=== PATIENT | female | born 1990 | race Caucasian/White ===

== ENCOUNTER 2016-08-10 14:56 | Emergency (ER) | payer OTHER ==
[2016-08-10 15:08] VITALS: BP 134/75; PULSE 79; TEMP 98.2; BMI 43.2
[2016-08-10] MEDS ORDERED: KETOROLAC TROMETHAMINE 60 MG/2 ML VIAL IM ONE (16:17)
[2016-08-10] MEDS ORDERED: KETOROLAC TROMETHAMINE 30 MG/1 ML VIAL ONE (16:18)
[2016-08-10] MEDS ORDERED: AMOXICILLIN 500 MG CAPSULE (FP) PO ONE (16:21)
[2016-08-10] MEDS ORDERED: AMOXICILLIN 250 MG CAPSULE ONE (16:28)
--- NOTE | 2016-08-10 16:31 | PDOC ---
History of Present Illness - General Chief Complaint: Ear Problem Stated Complaint: EAR PAIN, HEADACHES Time Seen by Provider: 08/10/16 15:34 History Source: Patient Exam Limitations: No Limitations Past History - Travel Traveled outside of the country in the last 30 days: No Close contact w/someone who was outside of country & ill: No - Past Medical History Allergies/Adverse Reactions: Allergies Allergy/AdvReac Type Severity Reaction Status Date / Time wheat Allergy Unknown Verified 08/10/16 15:05 egg whites Allergy Unknown Uncoded 08/10/16 15:05 peanuts Allergy Unknown Uncoded 08/10/16 15:05 Home Medications: Ambulatory Orders Amoxicillin - [Amoxicillin 500mg Capsule -] 500 mg PO TID #21 capsule 08/10/16 Cyclobenzaprine HCl [Flexeril 10 mg] 10 mg PO BID PRN #14 tablet 08/10/16 Naproxen [Naprosyn -] 500 mg PO BID #14 tablet 08/10/16 Asthma: No Cancer: No Cardiac Disorders: No Diabetes: No HTN: No Seizures: No Thyroid Disease: No - Psycho/Social/Smoking Cessation Hx Anxiety: No Suicidal Ideation: No Smoking Status: No Smoking History: Current every day smoker Have you smoked in the past 12 months: Yes Number of Cigarettes Smoked Daily: 5 If you are a former smoker, when did you quit?: 03/04 Information on smoking cessation initiated: No Hx Alcohol Use: No Drug/Substance Use Hx: No Substance Use Type: None Hx Substance Use Treatment: No Review of Systems - Review of Systems Able to Perform ROS?: Yes Is the patient limited Croatian proficient: Yes Constitutional: Yes: Symptoms Reported, See HPI, Chills, Fever, Malaise HEENTM: Yes: Symptoms Reported, See HPI, Mouth Pain (with lower right molar ) Respiratory: Yes: See HPI Integumentary: Yes: Symptoms Reported *Physical Exam - Vital Signs Last Vital Signs Temp Pulse Resp BP Pulse Ox 98.2 F 79 18 134/75 100 08/10/16 15:05 08/10/16 15:05 08/10/16 15:05 08/10/16 15:05 08/10/16 15:05 - Physical Exam General Appearance: Yes: Nourished, Appropriately Dressed, Apparent Distress, Mild Distress, Moderate Distress HEENT: positive: MYLES, TMs Normal (congested but landmarks easily visualized), Pharynx Normal, Rhinorrhea, Other (no facial tenderness/ or swelling, ). negative: Normal ENT Inspection, Sinus Tenderness Neck: positive: Tender, Supple, Other (reproduced tenderness along the sternocleidomastoid muscles, ) Respiratory/Chest: positive: Lungs Clear, Normal Breath Sounds Cardiovascular: positive: Regular Rate Extremity: positive: Normal Capillary Refill, Normal Range of Motion Integumentary: positive: Normal Color, Dry, Warm Neurologic: positive: senior scheduler II-XII NML intact, Fully Oriented, Alert, Normal Mood/ Affect, Normal Response Medical Decision Making - Medical Decision Making 08/10/16 16:31 Tension headache, will treat with NSAIDs and cyclobenzaprine, also dental pain which will be covered the NSAIDs, and also initiate antibiotics as patient will need dental procedure this week for extraction *DC/Admit/Observation/Transfer Diagnosis at time of Disposition: Tension headache, Pain, dental - Discharge Dispostion Disposition: HOME Condition at time of disposition: Stable Admit: No - Patient Instructions Printed Discharge Instructions: DI for Hormonal and Tension Headaches, DI for Dental Pain Additional Instructions: Rest, no heavy lifting or exercise until pain is resolved Hot soaks to neck and low back as often as possible/hot showers or Jacuzzis No massage or therapy until spasm is gone Continue ibuprofen 2-200 mg tablets every 6 hours for the next 3 days then as needed for pain and swelling Cyclobenzaprine 1-10mg every 8 hours as needed for spasm If not significant improvement within 24 hours with medication and rest regime, followup with private physician for change in medications and /or therapy. Rest, drink lots of fluids: Teas, water, soups Saltwater gargles/ keep mouth clean and rinse after each meal May use wet teabag for pain relief to area Avoid hard chewing foods, stick to ice cream, Jell-O, yogurt etc. Tylenol or Motrin for fever and pain Complete all medication as prescribed Seek dental appointment as soon as possible for evaluation of dental injury/pain Followup with private physician in one to 2 days as needed Return to emergency department for worsened symptoms, fevers, swelling to face or worsened pain
== END 2016-08-10 16:40 | disposition home or self-care (01) ==
LOC: JERFT 14:56
PROC: 3E0233Z Introduction of Anti-inflammatory into Muscle, Percutaneous Approach (ICD-10-PCS; principal; 2016-08-10)
DX: G44.209 Tension-type headache, unspecified, not intractable (principal); K08.89 Other specified disorders of teeth and supporting structures
CPT/HCPCS: 96372; 99281-25

== ENCOUNTER 2017-07-21 17:18 | Emergency (ER) | payer OTHER ==
--- NOTE | 2017-07-21 17:22 | PDOC ---
Rapid Medical Evaluation Time Seen by Provider: 07/21/17 17:21 Medical Evaluation: Allergies Allergy/AdvReac Type Severity Reaction Status Date / Time wheat Allergy Unknown Verified 07/21/17 17:20 egg whites Allergy Unknown Uncoded 07/21/17 17:20 peanuts Allergy Unknown Uncoded 07/21/17 17:20 07/21/17 17:22 27 year old female with lower abdominal cramping since yesterday, 5-6 episodes of diarrhea. +Dysuria. No vaginal discharge. No fevers/chills. LMP "last month at the end of the month." Has some spotting. Also complaining of left calf pain. V/s notable for HR 102. No focal abdominal tenderness. Plan: -Labs including CBC, CMP, Mg -UA/culture, urine preg -To Main ED for further evaluation
[2017-07-21 17:28] VITALS: BMI 44.6
[2017-07-21] MEDS ORDERED: SODIUM CHLORIDE 1,000 ML IV STA (17:42)
--- NOTE | 2017-07-21 17:49 | PDOC ---
History of Present Illness - General Chief Complaint: Pain, Acute Stated Complaint: ABD PAIN Time Seen by Provider: 07/21/17 17:21 - History of Present Illness Initial Comments: 07/21/17 18:03 The patient is a 27 year old female with no significant PMH who presents for evaluation of abdominal pain. The patient reports a 1 day history of crampy lower abdominal pain with associated 5-6 episodes of diarrhea prompting the patient's presentation to the ED for evaluation. The patient denies any recent antibiotic use. The patient otherwise denies fevers, chills, SOB, chest pain, nausea, vomiting, or changes with urination. She reports her LMP was 1 month ago and she has started spotting and reports that she should be starting her MP this week. Past History - Past Medical History Allergies/Adverse Reactions: Allergies Allergy/AdvReac Type Severity Reaction Status Date / Time wheat Allergy Unknown Verified 07/21/17 17:20 egg whites Allergy Unknown Uncoded 07/21/17 17:20 peanuts Allergy Unknown Uncoded 07/21/17 17:20 Home Medications: Ambulatory Orders Amoxicillin - [Amoxicillin 500mg Capsule -] 500 mg PO TID #21 capsule 08/10/16 Cyclobenzaprine HCl [Flexeril 10 mg] 10 mg PO BID PRN #14 tablet 08/10/16 Naproxen [Naprosyn -] 500 mg PO BID #14 tablet 08/10/16 Cephalexin Monohydrate [Keflex -] 500 mg PO BID #14 capsule 07/21/17 Asthma: No Cancer: No Cardiac Disorders: No COPD: Yes Diabetes: No HTN: No Seizures: No Thyroid Disease: No - Suicide/Smoking/Psychosocial Hx Smoking Status: No Smoking History: Current every day smoker Have you smoked in the past 12 months: Yes Number of Cigarettes Smoked Daily: 5 If you are a former smoker, when did you quit?: 03/04 Information on smoking cessation initiated: No Hx Alcohol Use: No Drug/Substance Use Hx: No Substance Use Type: None Hx Substance Use Treatment: No Review of Systems - Review of Systems Comments:: 07/21/17 18:08 Constitutional: No fevers, chills, fatigue, malaise HEENT: No Rhinorrhea, nasal congestion, visual changes Cardiovascular: No chest pain, syncope, palpitations, lightheadedness Respiratory: No Cough, SOB, Hemoptysis, Gastrointestinal: Abdominal Cramping, Diarrhea. No Nausea, Vomiting, Constipation, Melena Genitourinary: No Dysuria, Frequency, Urgency, Hesitancy, Hematuria, Flank pain Musculoskeletal: No Myalgia, arthralgia Skin: No rashes, itching, bruising, pallor Neurologic: No Headache, Dizziness, Numbness, Weakness, or Tingling Psychiatric: No Hallucinations. No SI or HI *Physical Exam - Vital Signs Last Vital Signs Temp Pulse Resp BP Pulse Ox 98.3 F 102 H 20 124/73 100 07/21/17 17:20 07/21/17 17:20 07/21/17 17:20 07/21/17 17:20 07/21/17 17:20 - Physical Exam Comments: 07/21/17 18:09 General Appearance: Nourished. No Apparent Distress HEENT: EOMI, MYLES. No Pharyngeal Erythema, Tonsillar Exudate, Tonsillar Erythema Neck: No Cervical Lymphadenopathy Respiratory/Chest: Lungs Clear, Normal Breath Sounds. No Crackles, Rales, Rhonchi, Wheezing Cardiovascular: Regular Rhythm, Regular Rate. No Murmur, Gallops, Rubs Gastrointestinal/Abdominal: Normal Bowel Sounds, Soft. Mild tenderness to deep palpation in the suprapubic region. No Guarding, Rebound, Musculoskeletal: No CVA Tenderness Extremity: Normal Capillary Refill Integumentary: Normal Color, Dry, Warm Neurologic: Fully Oriented, Alert, Normal Mood/Affect, Normal Response, ED Treatment Course - LABORATORY CBC & Chemistry Diagram: 07/21/17 16:20 07/21/17 16:20 Medical Decision Making - Medical Decision Making 07/21/17 18:11 The patient is a 27 year old female with no significant PMH who presents for evaluation of abdominal pain. Differential includes but is not limit to: Gastroenteritits, UTI, Menstrual cramping, infectious, metabolic derangement. Given the patient's history we will obtain a cbc, cmp, ua, urine preg to evaluate further for possible etiologies. We will treat in the meantime with iv fluids and continue to monitor and reassess. 07/21/17 21:59 CBC, cmp, serum preg are unremarkable. Given the patient's history and UA, it is possible the patient's symptoms are due to a UTI. The patient's abdominal exam remains normal and the patient reports improvement in her symptoms. The patient's vital signs have improved and the patient has tolerated PO intake. We are comfortable discharging the patient home at this time with primary care provider follow up on keflex. We discussed the results, plan and strict return precautions with the patient who voiced understanding and is agreeable with the plan. *DC/Admit/Observation/Transfer Diagnosis at time of Disposition: Urinary tract infection Qualifiers: Urinary tract infection type: site unspecified Hematuria presence: without hematuria Qualified Code(s): N39.0 - Urinary tract infection, site not specified - Discharge Dispostion Disposition: HOME Condition at time of disposition: Good Admit: No - Prescriptions Prescriptions: Cephalexin Monohydrate [Keflex -] 500 mg PO BID #14 capsule - Referrals Referrals: Layton Pantoja MD [Staff Physician] - - Patient Instructions Printed Discharge Instructions: DI for Urinary Tract Infection (UTI) Additional Instructions: Please return to the ER if you experience concerning or worsening symptoms including worsening abdominal pain, fevers, or vomiting. Your lab results were normal here in the ER. Your urine showed some signs of an infection and we have sent a prescription for antibiotics to your pharmacy that you should use as directed. It is extremely important that you call to schedule a follow up appointment with your primary care provider within 2-3 days to discuss your ER visit and further management of your symptoms. - Post Discharge Activity
[2017-07-21] MEDS ORDERED: IBUPROFEN 600 MG TABLET (FP) PO ONE ×2 (18:02→18:17)
[2017-07-21 18:32] LABS: BASO % 0.9 % (0-2.0); EOS % 1.3 % (0-4.5); HEMATOCRIT 41.2 % (32.4-45.2); HEMOGLOBIN 14.1 GM/dL (10.7-15.3); LYMPH % 25.5 % (8-40); MCH 29.5 pg (25.7-33.7); MCHC 34.3 g/dl (32.0-36.0); MEAN CELL VOLUME 86.2 fl (80-96); MEAN PLT VOLUME 8.8 fl (7.5-11.1); MONO % 4.1 % (3.8-10.2); NEUT % 68.2 % (42.8-82.8); PLATELET COUNT 208 K/MM3 (134-434); RBC 4.78 M/mm3 (3.60-5.2)
[2017-07-21 19:09] LABS: ALBUMIN 3.9 g/dl (3.4-5.0); ANION GAP 3 (8-16); BILIRUBIN,TOTAL 0.5 mg/dL (0.2-1.0); BLOOD UREA NITROGEN 11 mg/dL (7-18); CALCIUM 8.6 mg/dL (8.5-10.1); CHLORIDE 110 mmol/L (98-107); CO2 28 mmol/L (21-32); CREATININE 0.8 mg/dL (0.55-1.02); GLUCOSE,RANDOM 114 mg/dL (74-106); LIPASE 131 U/L (73-393); MAGNESIUM 1.9 mg/dL (1.8-2.4); POTASSIUM 3.8 mmol/L (3.5-5.1); SGOT/AST 22 U/L (15-37); SGPT/ALT 41 U/L (12-78); SODIUM 141 mmol/L (136-145)
--- NOTE | 2017-07-21 19:09 | PDOC ---
Attending Attestation - HPI HPI: 07/21/17 19:44 27 year old female with no known past medical history presents to the emergency department with abdominal pain since a day. Reports non radiating lower abdominal pain with associated symptoms of diarrhea. <Anita Wright - Last Filed: 07/21/17 19:44> - Resident Resident Name: Kameron Robins - ED Attending Attestation I have performed the following: I have examined & evaluated the patient, The case was reviewed & discussed with the resident, I agree w/resident's findings & plan, Exceptions are as noted - Physicial Exam PE: 07/21/17 22:28 EXAMINATION CONSTITUTIONAL: Well-appearing; well-nourished; in no apparent distress HEAD: Normocephalic; atraumatic EYES: PERRL; EOM intact ENMT: External appears normal; normal oropharynx CARD: Normal S1, S2; no murmurs, rubs, or gallops RESP: Normal chest excursion with respiration; breath sounds clear and equal bilaterally; no wheezes, rhonchi, or rales ABD: Soft, non-distended; + minimal suprapubic tenderness to palpation; no palpable organomegaly, no palpable hernias, no CVA tenderness EXT: Normal ROM in all four extremities; non-tender to palpation; distal pulses intact NEURO: No focal neurological deficiencies. - Medical Decision Making 07/21/17 22:28 27-year-old morbidly obese female presents with crampy abdominal pain, several episodes of loose watery stools and vaginal spotting. Serial abdominal exams reveal minimal suprapubic tenderness only, there is no guarding rebound, there is no tenderness at McBurney's and Liriano's is negative. Patient tolerates by mouth. CBC/CMP within normal limit. There is no evidence of leukocytosis. Patient is negative. Will discharge with abdominal pain instructions, outpatient follow-up. <Kush Pope - Last Filed: 07/21/17 22:29>
[2017-07-21 19:10] LABS: ALK PHOS 82 U/L (45-117)
[2017-07-21 20:06] LABS: URINE APPEARANCE CLOUDY; URINE BILIRUBIN NEGATIVE (<2.0 mg/dL); URINE BLOOD 2+ (NEGATIVE); URINE COLOR DKYELLOW; URINE GLUCOSE (UA) NEGATIVE (NEGATIVE); URINE KETONE NEGATIVE (NEGATIVE); URINE NITRITE NEGATIVE (NEGATIVE); URINE PROTEIN NEGATIVE (NEGATIVE)
[2017-07-21 20:08] LABS: URINE LEUK ESTERASE 2+ (NEGATIVE)
[2017-07-21 20:10] LABS: EPI CELLS MODERATE /HPF (FEW); URINE MUCUS RARE
[2017-07-21] MEDS ORDERED: CEPHALEXIN MONOHYDRATE 500 MG CAPSULE (UD) PO ONE (20:44)
[2017-07-21 21:11] LABS: URINE APPEARANCE SLCLOUDY; URINE BILIRUBIN NEGATIVE (<2.0 mg/dL); URINE BLOOD NEGATIVE (NEGATIVE); URINE COLOR AMBER; URINE GLUCOSE (UA) NEGATIVE (NEGATIVE); URINE KETONE TRACE (NEGATIVE); URINE LEUK ESTERASE NEGATIVE (NEGATIVE); URINE NITRITE NEGATIVE (NEGATIVE)
[2017-07-21] MEDS ORDERED: PHENAZOPYRIDINE HCL 100 MG TABLET (FP) PO ONE (21:31)
[2017-07-21 21:45] LABS: URINE PROTEIN 1+ (NEGATIVE)
[2017-07-21 21:46] LABS: EPI CELLS RARE /HPF (FEW); URINE MUCUS FEW
[2017-07-21] MEDS ORDERED: ACETAMINOPHEN 1000 MG/100 ML VIAL (NON FORMULARY) IVPB ONE (21:50)
[2017-07-21 22:31] VITALS: BP 122/70; PULSE 96; TEMP 98.1
[2017-07-21] MEDS ORDERED: PHENAZOPYRIDINE HCL 100 MG TABLET (FP) ONE ×2 (22:46→22:49)
[2017-07-21] MEDS ORDERED: ACETAMINOPHEN INJECTION 100 ML IVPB ONE (22:46)
[2017-07-21] MEDS ORDERED: CEPHALEXIN MONOHYDRATE 500 MG CAPSULE (UD) ONE (22:46)
== END 2017-07-21 22:56 | disposition home or self-care (01) ==
LOC: JER 17:18
PROC: 3E033NZ Introduction of Analgesics, Hypnotics, Sedatives into Peripheral Vein, Percutaneous Approach (ICD-10-PCS; principal; 2017-07-21)
PROC: 3E0337Z Introduction of Electrolytic and Water Balance Substance into Peripheral Vein, Percutaneous Approach (ICD-10-PCS; 2017-07-21)
DX: N39.0 Urinary tract infection, site not specified (principal); J44.9 Chronic obstructive pulmonary disease, unspecified; F17.210 Nicotine dependence, cigarettes, uncomplicated
CPT/HCPCS: 36415; 80053; 81003; 81015; 83690; 83735; 84703; 85025; 87086; 96361; 96374; 99284-25; J0131; J7030

== ENCOUNTER 2017-09-29 12:24 | Inpatient (IN) | payer OTHER ==
--- NOTE | 2017-09-29 13:11 | PDOC ---
History of Present Illness - General Chief Complaint: Redness To Affected Area Stated Complaint: REVISIT/ RT LEG ABSCESS (PCP SENT) History Source: Patient - History of Present Illness Initial Comments: 09/29/17 13:20 Patient is a 27 year old female who presents to our ED c/o increasing redness of RLE. Patient first noticed a redness and small area of induration the size of a quarter over her R calf muscle 5 days previous. Over the course of the next 48 hours the redness increased and patient presented to our ED on 09/27/17 at which time she was given a provisional diagnosis of cellulitis and discharged on PO Bactrim and Keflex. Patient evaluated today by Dr. Wood general surgery who noted increasing area of erythema and sent to our ED for further evaluation. Denies any fevers/chills. Notes area is TTP however denies active pain. NKDA Surgical: denies Social: 3-4 cigarettes daily, denies alcohol, denies recreational drug PMD: None - will refer to Dr. Muniz, [facility]ident [facility] Past History - Past Medical History Allergies/Adverse Reactions: Allergies Allergy/AdvReac Type Severity Reaction Status Date / Time wheat Allergy Unknown Verified 09/29/17 12:30 egg whites Allergy Unknown Uncoded 09/29/17 12:30 peanuts Allergy Unknown Uncoded 09/29/17 12:30 Home Medications: Ambulatory Orders Cephalexin [Keflex] 500 mg PO QID #40 capsule 09/27/17 Sulfamethoxazole/Trimethoprim [Bactrim Ds -] 1 tab PO BID #14 tablet 09/27/17 Asthma: No Cancer: No Cardiac Disorders: No COPD: Yes Diabetes: No HTN: No Seizures: No Thyroid Disease: No - Suicide/Smoking/Psychosocial Hx Smoking Status: No Smoking History: Never smoked Have you smoked in the past 12 months: No Number of Cigarettes Smoked Daily: 5 If you are a former smoker, when did you quit?: 03/04 Information on smoking cessation initiated: No Hx Alcohol Use: No Drug/Substance Use Hx: No Substance Use Type: None Hx Substance Use Treatment: No Review of Systems - Review of Systems Constitutional: No: Chills, Fever Respiratory: No: Shortness of Breath Cardiac (ROS): No: Chest Pain ABD/GI: No: Constipated, Diarrhea, Nausea, Vomiting : No: Burning, Dysuria *Physical Exam - Vital Signs Last Vital Signs Temp Pulse Resp BP Pulse Ox 97.6 F 90 16 101/51 100 09/29/17 12:27 09/29/17 12:27 09/29/17 12:27 09/29/17 12:27 09/29/17 12:27 - Physical Exam General Appearance: Yes: Nourished Neck: positive: Trachea midline, Supple Respiratory/Chest: positive: Lungs Clear Cardiovascular: positive: S1, S2. negative: Edema, JVD Vascular Pulses: Dorsalis-Pedis (R): 2+, Doralis-Pedis (L): 2+ Integumentary: positive: Other (RLE - erythematous, mild TTP, area of induration over central calf; erythema extends beyond black pen marking) Neurologic: positive: Fully Oriented, Alert ED Treatment Course - LABORATORY CBC & Chemistry Diagram: 09/29/17 13:56 09/29/17 13:56 Medical Decision Making - Medical Decision Making 09/29/17 13:28 27 year old female presents with RLE cellulitis - h/o failed outpatient treatment on Keflex/Bactrim. PE significant for LLE erythema and small area of induration. Suspect failed outpatient cellulitis treatment. Bedside U/S shows no fluid collection over area of induration. 09/29/17 14:44 CBC shows no leukocytosis, CRP elevated. ESR pending. Will page Dr. Mijares (Hospitalist) for admission. 09/29/17 14:54 Case d/w Dr. Mijares, accepts for inpatient admission. Requests Dr. Padgett for ID. Will give OTD of Vancomycin and Zoysn for presumed MRSA. 09/29/17 15:08 Dr. Padgett @ bedside. Agrees with POC. Patient and patient's family @ bedside counseled on POC. Amenable to admission. *DC/Admit/Observation/Transfer Diagnosis at time of Disposition: Cellulitis - Discharge Dispostion Condition at time of disposition: Fair Decision to Admit order: Yes - Referrals - Patient Instructions - Post Discharge Activity
--- NOTE | 2017-09-29 13:47 | PDOC ---
Attending Attestation - Resident Resident Name: Alba Sullivan - ED Attending Attestation I have performed the following: I have examined & evaluated the patient, The case was reviewed & discussed with the resident, I agree w/resident's findings & plan, Exceptions are as noted - HPI HPI: 09/29/17 14:28 Ms Pepe is a 27 yo F no significant past medical history who presents to the ER with a complaint of increasing redness of right lower extremity erythema. Symptoms began 5 days ago, she was seen in the ER started on Keflex and Bactrim (Which she has taken) She was seen by Dr Wood today where evaluation revealed erythema which has spread beyond the area which was outlined Denies any fevers/chills. Notes area is TTP however denies active pain. - Physicial Exam PE: 09/29/17 15:07 - Physical Exam General Appearance: Yes: Nourished Neck: positive: Trachea midline, Supple Respiratory/Chest: positive: Lungs Clear Cardiovascular: positive: S1, S2. 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
[2017-09-29] MEDS ORDERED: ACETAMINOPHEN 500 MG TABLET (FP) PO ONE (14:03)
[2017-09-29 14:04] LABS: BASO % 0.5 % (0-2.0); EOS % 0.9 % (0-4.5); HEMATOCRIT 43.6 % (32.4-45.2); HEMOGLOBIN 14.3 GM/dL (10.7-15.3); LYMPH % 24.2 % (8-40); MCH 28.7 pg (25.7-33.7); MCHC 32.8 g/dl (32.0-36.0); MEAN CELL VOLUME 87.5 fl (80-96); MEAN PLT VOLUME 9.5 fl (7.5-11.1); MONO % 3.7 % (3.8-10.2); NEUT % 70.7 % (42.8-82.8); PLATELET COUNT 215 K/MM3 (134-434); RBC 4.98 M/mm3 (3.60-5.2); RDW 13.1 % (11.6-15.6); WHITE BLOOD COUNT 8.2 K/mm3 (4.0-10.0)
[2017-09-29] MEDS ORDERED: ACETAMINOPHEN 500 MG TABLET (FP) ONE (14:08)
[2017-09-29 14:29] LABS: ALBUMIN 4.1 g/dl (3.4-5.0); ALK PHOS 88 U/L (45-117); ANION GAP 6 (8-16); BILIRUBIN,TOTAL 0.4 mg/dL (0.2-1.0); BLOOD UREA NITROGEN 8 mg/dL (7-18); CALCIUM 8.8 mg/dL (8.5-10.1); CHLORIDE 107 mmol/L (98-107); CO2 26 mmol/L (21-32); CREATININE 0.7 mg/dL (0.55-1.02); GLUCOSE,RANDOM 87 mg/dL (74-106); POTASSIUM 4.4 mmol/L (3.5-5.1); SGOT/AST 16 U/L (15-37); SGPT/ALT 39 U/L (12-78); SODIUM 139 mmol/L (136-145); TOT PROT 7.3 g/dl (6.4-8.2)
[2017-09-29] MEDS ORDERED: VANCOMYCIN 1,000 MG in DEXTROSE 5%-WATER - 250 ML IVPB ONE (14:53)
[2017-09-29] MEDS ORDERED: VANCOMYCIN 1 GRAM (PRE-DOCKED) 1,000 MG/250 ML BAG IVPB ONE (15:00)
--- NOTE | 2017-09-29 15:09 | CON.ID ---
Consult Consult Specialty:: infectious diseases Reason for Consultation:: cellulittis of the rt thigh - History of Present Illness Chief Complaint: swelling and pain and erythema of the rt thigh History of Present Illness: 27 year old female who presents to our ED c/o increasing redness of RLE. Patient first noticed a redness and small area of induration the size of a quarter over her R calf muscle 5 days previous. Over the course of the next 48 hours the redness increased and patient presented to our ED on 09/27/17 at which time she was given a provisional diagnosis of cellulitis and discharged on PO Bactrim and Keflex. Patient evaluated today by Dr. Wood general surgery who noted increasing area of erythema and sent to our ED for further evaluation. Denies any fevers/chills. Notes area is TTP however denies active pain. patient is c/o of pain and cannot fold her leg because it causes her a lot of pain patient is morbidly obese - History Source History Provided By: Patient Limitations to Obtaining History: No Limitations - Past Medical History Endocrine: Yes: Hyperthyroidism (on no meds) - Alcohol/Substance Use Hx Alcohol Use: No - Smoking History Smoking history: Never smoked Have you smoked in the past 12 months: No Aproximately how many cigarettes per day: 5 If you are a former smoker, when did you quit?: 03/04 - Social History History of Recent Travel: No Home Medications - Allergies Allergies/Adverse Reactions: Allergies Allergy/AdvReac Type Severity Reaction Status Date / Time wheat Allergy Unknown Verified 09/29/17 12:30 egg whites Allergy Unknown Uncoded 09/29/17 12:30 peanuts Allergy Unknown Uncoded 09/29/17 12:30 - Home Medications Home Medications: Ambulatory Orders Cephalexin [Keflex] 500 mg PO QID #40 capsule 09/27/17 Sulfamethoxazole/Trimethoprim [Bactrim Ds -] 1 tab PO BID #14 tablet 09/27/17 Review of Systems - Review of Systems Constitutional: reports: No Symptoms Eyes: reports: No Symptoms HENT: reports: No Symptoms Neck: reports: No Symptoms Cardiovascular: reports: No Symptoms Respiratory: reports: No Symptoms Gastrointestinal: reports: No Symptoms Genitourinary: reports: No Symptoms Musculoskeletal: reports: Muscle Pain Integumentary: reports: Change in Color, Erythema (rt thigh) Neurological: reports: No Symptoms Endocrine: reports: No Symptoms Hematology/Lymphatic: reports: No Symptoms Psychiatric: reports: No Symptoms Physical Exam Vital Signs: Vital Signs Temperature 97.6 F 09/29/17 12:27 Pulse Rate 90 09/29/17 12:27 Respiratory Rate 16 09/29/17 12:27 Blood Pressure 101/51 09/29/17 12:27 O2 Sat by Pulse Oximetry (%) 100 09/29/17 12:27 Constitutional: Yes: Well Nourished, Calm, Mild Distress, Obese Eyes: Yes: Conjunctiva Clear HENT: Yes: Atraumatic, Normocephalic Neck: Yes: Supple, Trachea Midline Cardiovascular: Yes: Regular Rate and Rhythm Respiratory: Yes: Regular, CTA Bilaterally Gastrointestinal: Yes: Normal Bowel Sounds, Soft Musculoskeletal: Yes: WNL Extremities: Yes: Erythema Integumentary: Yes: Erythema (of the rt thigh with pain and swelling) Neurological: Yes: Alert, Oriented Psychiatric: Yes: Alert, Oriented Labs: CBC, BMP 09/29/17 13:56 09/29/17 13:56 Assessment/Plan Problem List - Problems (1) Cellulitis and abscess of right leg Code(s): L03.115 - CELLULITIS OF RIGHT LOWER LIMB; L02.415 - CUTANEOUS ABSCESS OF RIGHT LOWER LIMB 2 pain 3 morbid obesity plan will start on iv abx as patient has failed outpatient therapy rest continue current mgmt await for blood cx reports rest as per the team
--- NOTE | 2017-09-29 15:13 | HP ---
Admitting History and Physical - Primary Care Physician PCP: Hoang Mijares - Admission History of Present Illness: Ms Pepe is a 27 yo F no significant past medical history who presents to the ER with a complaint of increasing redness of right lower extremity erythema. Symptoms began 5 days ago, she was seen in the ER started on Keflex and Bactrim (Which she has taken) She was seen by Dr Wood today where evaluation revealed erythema which has spread beyond the area which was outlined Denies any fevers/chills. - Past Medical History Endocrine: Yes: Hyperthyroidism (on no meds) - Smoking History Smoking history: Never smoked Have you smoked in the past 12 months: No Aproximately how many cigarettes per day: 5 If you are a former smoker, when did you quit?: 03/04 - Alcohol/Substance Use Hx Alcohol Use: No - Social History History of Recent Travel: No Home Medications - Allergies Allergies/Adverse Reactions: Allergies Allergy/AdvReac Type Severity Reaction Status Date / Time wheat Allergy Unknown Verified 09/29/17 12:30 egg whites Allergy Unknown Uncoded 09/29/17 12:30 peanuts Allergy Unknown Uncoded 09/29/17 12:30 - Home Medications Home Medications: Ambulatory Orders Cephalexin [Keflex] 500 mg PO QID #40 capsule 09/27/17 Sulfamethoxazole/Trimethoprim [Bactrim Ds -] 1 tab PO BID #14 tablet 09/27/17 Physical Examination Vital Signs: Vital Signs Temperature 97.6 F 09/29/17 12:27 Pulse Rate 90 09/29/17 12:27 Respiratory Rate 16 09/29/17 12:27 Blood Pressure 101/51 09/29/17 12:27 O2 Sat by Pulse Oximetry (%) 100 09/29/17 12:27 Constitutional: Yes: No Distress HENT: Yes: Atraumatic Neck: Yes: Supple Cardiovascular: Yes: Regular Rate and Rhythm Respiratory: Yes: CTA Bilaterally Gastrointestinal: Yes: Normal Bowel Sounds Extremities: Yes: Other (R jess erythema) Neurological: Yes: Alert, Oriented Labs: CBC, BMP 09/29/17 13:56 09/29/17 13:56 Problem List - Problems (1) Cellulitis and abscess of right leg Assessment/Plan: iv abx prn pain meds Code(s): L03.115 - CELLULITIS OF RIGHT LOWER LIMB; L02.415 - CUTANEOUS ABSCESS OF RIGHT LOWER LIMB Assessment/Plan Laboratory Tests 09/29/17 09/29/17 13:56 13:56 WBC 8.2 RBC 4.98 Hgb 14.3 Hct 43.6 MCV 87.5 MCH 28.7 MCHC 32.8 RDW 13.1 Plt Count 215 MPV 9.5 Absolute Neuts (auto) 5.8 Neutrophils % 70.7 Lymphocytes % 24.2 Monocytes % 3.7 L Eosinophils % 0.9 Basophils % 0.5 Nucleated RBC % 0 Sodium 139 Potassium 4.4 Chloride 107 Carbon Dioxide 26 Anion Gap 6 L BUN 8 Creatinine 0.7 Creat Clearance w eGFR > 60 Random Glucose 87 Calcium 8.8 Total Bilirubin 0.4 AST 16 ALT 39 Alkaline Phosphatase 88 C-Reactive Protein 2.1 H Total Protein 7.3 Albumin 4.1 Active Medications Generic Name Dose Route Start Last Admin Trade Name Freq PRN Reason Stop Dose Admin Acetaminophen 650 mg 09/29/17 15:15 09/30/17 19:10 Tylenol - PO 650 mg Q6H PRN Administration FEVER Heparin Sodium (Porcine) 5,000 unit 09/29/17 22:00 09/30/17 10:11 Heparin - SQ 5,000 unit BID ZIGGY Administration Piperacillin Sod/Tazobactam 50 mls @ 100 mls/hr 09/29/17 15:15 09/30/17 18:37 Sod 3.375 gm/ Dextrose IVPB 100 mls/hr Q8H-IV ZIGGY Administration Protocol
[2017-09-29] MEDS ORDERED: PIPERACILLIN/TAZOB 3.375 GM 3.375 GM/50 ML BAG IVPB ONE (15:54)
[2017-09-29 16:03] LABS: ERYTHROCYTE SEDIMENTATION RATE 16 mm/hr (0-20)
[2017-09-29] MEDS: PIPERACILLIN/TAZOB 3.375 GM 3.375 GM in DEXTROSE 5%-WATER - 50 ML IVPB SCH ×2 (16:15→18:46)
[2017-09-29 18:59] VITALS: BMI 47.3
[2017-09-29] MEDS: HEPARIN NA (PORCINE) 5,000 UNITS/ML 1ML VIAL SQ SCH (22:24)
[2017-09-29] MEDS: ACETAMINOPHEN 325 MG TABLET (FP) PO PRN (22:27)
[2017-09-29] MEDS ORDERED: PT OWN MED DRAWER 7, Y5N ONE (22:37)
[2017-09-30] MEDS ORDERED: PIPERACILLIN/TAZOBACTAM 3.375 GM VIAL IVPB ONE ×3 (00:29→18:32)
[2017-09-30] MEDS ORDERED: DEXTROSE 5%-WATER - 50 ML IVPB ONE ×3 (00:29→18:32)
[2017-09-30] MEDS: PIPERACILLIN/TAZOB 3.375 GM 3.375 GM in DEXTROSE 5%-WATER - 50 ML IVPB SCH ×3 (01:44→18:37)
[2017-09-30 07:50] LABS: BASO % 0.5 % (0-2.0); EOS % 1.7 % (0-4.5); HEMATOCRIT 42.9 % (32.4-45.2); HEMOGLOBIN 14.1 GM/dL (10.7-15.3); LYMPH % 32.1 % (8-40); MCH 28.6 pg (25.7-33.7); MCHC 32.9 g/dl (32.0-36.0); MEAN CELL VOLUME 86.7 fl (80-96); MEAN PLT VOLUME 9.8 fl (7.5-11.1); MONO % 5.3 % (3.8-10.2); NEUT % 60.4 % (42.8-82.8); PLATELET COUNT 188 K/MM3 (134-434); RBC 4.95 M/mm3 (3.60-5.2); WHITE BLOOD COUNT 7.4 K/mm3 (4.0-10.0)
[2017-09-30 08:03] LABS: ALBUMIN 3.5 g/dl (3.4-5.0); ANION GAP 6 (8-16); BILIRUBIN,TOTAL 0.3 mg/dL (0.2-1.0); BLOOD UREA NITROGEN 11 mg/dL (7-18); CALCIUM 8.6 mg/dL (8.5-10.1); CHLORIDE 109 mmol/L (98-107); CO2 26 mmol/L (21-32); CREATININE 0.7 mg/dL (0.55-1.02); GLUCOSE,RANDOM 109 mg/dL (74-106); POTASSIUM 4.5 mmol/L (3.5-5.1); SGOT/AST 14 U/L (15-37); SGPT/ALT 33 U/L (12-78); SODIUM 141 mmol/L (136-145); TOT PROT 6.6 g/dl (6.4-8.2)
[2017-09-30 08:04] LABS: ALK PHOS 75 U/L (45-117)
[2017-09-30] MEDS: HEPARIN NA (PORCINE) 5,000 UNITS/ML 1ML VIAL SQ SCH ×2 (10:11→22:24)
[2017-09-30] MEDS: ACETAMINOPHEN 325 MG TABLET (FP) PO PRN ×2 (12:46→19:10)
--- NOTE | 2017-09-30 17:33 | PN ---
Progress Note, Physician - Current Medication List Current Medications: Active Medications Acetaminophen (Tylenol -) 650 mg PO Q6H PRN PRN Reason: FEVER Last Admin: 09/30/17 12:46 Dose: 650 mg Heparin Sodium (Porcine) (Heparin -) 5,000 unit SQ BID ZIGGY Last Admin: 09/30/17 10:11 Dose: 5,000 unit Piperacillin Sod/Tazobactam (Sod 3.375 gm/ Dextrose) 50 mls @ 100 mls/hr IVPB Q8H-IV ZIGGY; Protocol Last Admin: 09/30/17 10:10 Dose: 100 mls/hr - Objective Vital Signs: Vital Signs Temperature 97.6 F 09/30/17 14:50 Pulse Rate 82 09/30/17 14:50 Respiratory Rate 16 09/30/17 14:50 Blood Pressure 118/72 09/30/17 14:50 O2 Sat by Pulse Oximetry (%) 98 09/29/17 21:00 Constitutional: Yes: No Distress HENT: Yes: Atraumatic Neck: Yes: Supple Cardiovascular: Yes: Regular Rate and Rhythm Respiratory: Yes: CTA Bilaterally Gastrointestinal: Yes: Normal Bowel Sounds Extremities: Yes: Other (rlex erythema) Edema: Yes Edema: RLE: 1+ Peripheral Pulses WNL: Yes Neurological: Yes: Alert, Oriented Labs: CBC, BMP 09/30/17 06:40 09/30/17 06:40 Problem List - Problems (1) Cellulitis and abscess of right leg Assessment/Plan: iv abx prn pain meds Code(s): L03.115 - CELLULITIS OF RIGHT LOWER LIMB; L02.415 - CUTANEOUS ABSCESS OF RIGHT LOWER LIMB
[2017-10-01] MEDS ORDERED: PIPERACILLIN/TAZOBACTAM 3.375 GM VIAL IVPB ONE ×3 (00:55→17:52)
[2017-10-01] MEDS ORDERED: DEXTROSE 5%-WATER - 50 ML IVPB ONE ×3 (00:55→17:52)
[2017-10-01] MEDS: PIPERACILLIN/TAZOB 3.375 GM 3.375 GM in DEXTROSE 5%-WATER - 50 ML IVPB SCH ×3 (01:35→18:03)
[2017-10-01] MEDS: ACETAMINOPHEN 325 MG TABLET (FP) PO PRN ×3 (01:35→20:16)
[2017-10-01] MEDS: HEPARIN NA (PORCINE) 5,000 UNITS/ML 1ML VIAL SQ SCH ×2 (10:08→21:38)
--- NOTE | 2017-10-01 11:48 | PN ---
Progress Note, Physician History of Present Illness: doing well cellulittis improving still redness present patient stable - Current Medication List Current Medications: Active Medications Acetaminophen (Tylenol -) 650 mg PO Q6H PRN PRN Reason: FEVER Last Admin: 10/01/17 10:19 Dose: 650 mg Heparin Sodium (Porcine) (Heparin -) 5,000 unit SQ BID ZIGGY Last Admin: 10/01/17 10:08 Dose: 5,000 unit Piperacillin Sod/Tazobactam (Sod 3.375 gm/ Dextrose) 50 mls @ 100 mls/hr IVPB Q8H-IV ZIGGY; Protocol Last Admin: 10/01/17 10:08 Dose: 100 mls/hr - Objective Vital Signs: Vital Signs Temperature 97.6 F 10/01/17 10:11 Pulse Rate 76 10/01/17 10:11 Respiratory Rate 18 10/01/17 10:11 Blood Pressure 133/63 10/01/17 10:11 O2 Sat by Pulse Oximetry (%) 98 09/30/17 21:00 Constitutional: Yes: No Distress, Calm, Obese Cardiovascular: Yes: Regular Rate and Rhythm Respiratory: Yes: Regular, CTA Bilaterally Gastrointestinal: Yes: Normal Bowel Sounds, Soft Musculoskeletal: Yes: Other Extremities: Yes: Erythema (rt thigh) Integumentary: Yes: Erythema Neurological: Yes: Alert, Oriented Psychiatric: Yes: Alert, Oriented Labs: CBC, BMP 09/30/17 06:40 09/30/17 06:40 Assessment/Plan Problem List - Problems (1) Cellulitis and abscess of right leg Code(s): L03.115 - CELLULITIS OF RIGHT LOWER LIMB; L02.415 - CUTANEOUS ABSCESS OF RIGHT LOWER LIMB 2 pain 3 morbid obesity plan continue iv abx rest continue current mgmt await for blood cx reports rest as per the team
--- NOTE | 2017-10-01 11:52 | PN ---
Progress Note, Physician History of Present Illness: doign well patient forming a central fullness in the swelling could form and abscess there - Current Medication List Current Medications: Active Medications Acetaminophen (Tylenol -) 650 mg PO Q6H PRN PRN Reason: FEVER Last Admin: 10/01/17 10:19 Dose: 650 mg Heparin Sodium (Porcine) (Heparin -) 5,000 unit SQ BID ZIGGY Last Admin: 10/01/17 10:08 Dose: 5,000 unit Piperacillin Sod/Tazobactam (Sod 3.375 gm/ Dextrose) 50 mls @ 100 mls/hr IVPB Q8H-IV ZIGGY; Protocol Last Admin: 10/01/17 10:08 Dose: 100 mls/hr - Objective Vital Signs: Vital Signs Temperature 97.6 F 10/01/17 10:11 Pulse Rate 76 10/01/17 10:11 Respiratory Rate 18 10/01/17 10:11 Blood Pressure 133/63 10/01/17 10:11 O2 Sat by Pulse Oximetry (%) 98 09/30/17 21:00 Constitutional: Yes: No Distress, Calm Cardiovascular: Yes: Regular Rate and Rhythm Respiratory: Yes: Regular, CTA Bilaterally Gastrointestinal: Yes: Normal Bowel Sounds, Soft Musculoskeletal: Yes: Other Extremities: Yes: Erythema Neurological: Yes: Alert, Oriented Psychiatric: Yes: Alert, Oriented Labs: CBC, BMP 09/30/17 06:40 09/30/17 06:40 Assessment/Plan Problem List - Problems (1) Cellulitis and abscess of right leg Code(s): L03.115 - CELLULITIS OF RIGHT LOWER LIMB; L02.415 - CUTANEOUS ABSCESS OF RIGHT LOWER LIMB 2 pain 3 morbid obesity plan continue iv abx rest continue current mgmt will monitor the central swelling rest as per the team
--- NOTE | 2017-10-01 15:54 | PN ---
Progress Note, Physician - Current Medication List Current Medications: Active Medications Acetaminophen (Tylenol -) 650 mg PO Q6H PRN PRN Reason: FEVER Last Admin: 10/01/17 10:19 Dose: 650 mg Heparin Sodium (Porcine) (Heparin -) 5,000 unit SQ BID ZIGGY Last Admin: 10/01/17 10:08 Dose: 5,000 unit Piperacillin Sod/Tazobactam (Sod 3.375 gm/ Dextrose) 50 mls @ 100 mls/hr IVPB Q8H-IV ZIGGY; Protocol Last Admin: 10/01/17 10:08 Dose: 100 mls/hr - Objective Vital Signs: Vital Signs Temperature 98.2 F 10/01/17 14:16 Pulse Rate 69 10/01/17 14:16 Respiratory Rate 17 10/01/17 14:16 Blood Pressure 109/64 10/01/17 14:16 O2 Sat by Pulse Oximetry (%) 98 09/30/17 21:00 Constitutional: Yes: No Distress HENT: Yes: Atraumatic Neck: Yes: Supple Cardiovascular: Yes: Regular Rate and Rhythm Respiratory: Yes: CTA Bilaterally Gastrointestinal: Yes: Normal Bowel Sounds Extremities: Yes: Other (R jess ..abcess? swelling more in the center of erythema ) Neurological: Yes: Alert, Oriented Labs: CBC, BMP 09/30/17 06:40 09/30/17 06:40 Problem List - Problems (1) Cellulitis and abscess of right leg Assessment/Plan: iv abx prn pain meds Code(s): L03.115 - CELLULITIS OF RIGHT LOWER LIMB; L02.415 - CUTANEOUS ABSCESS OF RIGHT LOWER LIMB
--- NOTE | 2017-10-01 17:25 | CONSULT ---
Consult Consult Specialty:: General Surgery Referred by:: Dr. Mijares Reason for Consultation:: right leg cellulitis ?abscess - History of Present Illness Chief Complaint: right leg redness, swelling, pain History of Present Illness: 27yo morbidly obese F woke up last Wednesday with small, pink/red area on right distal inner thigh. Denies local trauma, bug bite or shaving in the area. The redness spread over the next few days, and she went to the ER Wednesday, where they diagnosed cellulitis and Rx Bactrim bid and Keflex qid, which she obtained and started that night. She called the next day for appt with Dr. Wood on Wednesday. Last took Keflex 2am Wed when got up for a drink of water, but did not take either med Wednesday morning. Dr. Wood saw her in office and sent her to ER for evaluation and IV antibiotics, and she was given Vanco and Zosyn in ER and admitted to medicine. Zosyn has been continued; the area has decreased in redness from the marked periphery, and her pain and tenderness have also improved a great deal. She can now walk without much discomfort. It never drained anything. She has not had this problem before or anywhere else on her body. Surgery is asked to assess for possible need for drainage. She is seen and examined in her room with mother at bedside. 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 - History Source History Provided By: Patient Limitations to Obtaining History: No Limitations - Past Medical History Gastrointestinal: Yes: Other (morbid obesity) ...LMP: 09/14/17 ...: No ...Para: 2 (1 1 c/s (5&3yo)) Endocrine: Yes: Hyperthyroidism (on no meds) - Past Surgical History Past Surgical History: Yes: (x1) - Alcohol/Substance Use Hx Alcohol Use: Yes (social) History of Substance Use: reports: None - Smoking History Smoking history: Current every day smoker Have you smoked in the past 12 months: Yes Aproximately how many cigarettes per day: 10 If you are a former smoker, when did you quit?: - Social History ADL: Independent 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 History of Recent Travel: No Home Medications - Allergies Allergies/Adverse Reactions: Allergies Allergy/AdvReac Type Severity Reaction Status Date / Time wheat Allergy Unknown Verified 09/29/17 12:30 egg whites Allergy Unknown Uncoded 09/29/17 12:30 peanuts Allergy Unknown Uncoded 09/29/17 12:30 - Home Medications Home Medications: Ambulatory Orders Cephalexin [Keflex] 500 mg PO QID #40 capsule 09/27/17 Sulfamethoxazole/Trimethoprim [Bactrim Ds -] 1 tab PO BID #14 tablet 09/27/17 Family Disease History - Family Disease History Family History: Unremarkable (noncontributory) Review of Systems - Review of Systems Constitutional: denies: Chills, Fever Eyes: reports: Other (wears glasses). denies: Recent Change in Vision HENT: denies: Difficult Swallowing, Throat Pain Neck: denies: Swollen Glands, Tenderness Cardiovascular: denies: Chest Pain, Palpitations Respiratory: denies: Cough, SOB Gastrointestinal: denies: Abdominal Pain, Nausea, Vomiting Genitourinary: denies: Burning, Dysuria Musculoskeletal: reports: Extremity Pain (R leg w/hpi). denies: Back Pain Integumentary: reports: Erythema (w/hpi), Lump (w/hpi). denies: Rash Neurological: denies: Dizziness, Headache Physical Exam Vital Signs: Vital Signs Temperature 98.2 F 10/01/17 14:16 Pulse Rate 69 10/01/17 14:16 Respiratory Rate 17 10/01/17 14:16 Blood Pressure 109/64 10/01/17 14:16 O2 Sat by Pulse Oximetry (%) 98 10/01/17 09:00 Constitutional: Yes: No Distress, Calm, Obese Eyes: Yes: Conjunctiva Clear, EOM Intact, Other (glasses) HENT: Yes: Atraumatic, Normocephalic Neck: Yes: Supple, Trachea Midline Cardiovascular: Yes: Regular Rate and Rhythm. No: Murmur Respiratory: Yes: Regular, CTA Bilaterally Gastrointestinal: Yes: Normal Bowel Sounds, Soft, Abdomen, Obese, Other (small tender bruise LLQ from anticoagulant injection). No: Tenderness ...Rectal Exam: Yes: Deferred Renal/: No: Francis Present, Musculoskeletal: No: Joint Stiffness, Joint Swelling Extremities: Yes: Erythema (R distal inner thigh - ~6x8cm area of erythema, ~ 3x5cm area of induration, mild swelling around central focus, no clear punctum, no drainage, mildly tender only, clearly decreased from previous circumferential pen marking - better per pt). No: Cool, Cyanosis Edema: No Peripheral Pulses WNL: Yes Integumentary: Yes: Body Piercing (just below left lower lip). No: Jaundice, Rash Wound/Incision: Yes: Open to air, Other (R leg - see above) Neurological: Yes: Alert, Oriented Psychiatric: Yes: Alert, Oriented Labs: CBC, BMP 09/30/17 06:40 09/30/17 06:40 wbc has remained normal Imaging - Results Other: Other (no formal imaging - per pt, ER did ultrasound showing no drainable collection) Problem List - Problems (1) Cellulitis of right thigh Assessment/Plan: no mature abscess at this time - would not I&D yet cellulitis improving on Zosyn, still with erythema and local induration, but greatly reduced by history and marking ID following, consider MRSA coverage? 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 Code(s): L03.115 - CELLULITIS OF RIGHT LOWER LIMB (2) Right thigh pain Code(s): M79.651 - PAIN IN RIGHT THIGH (3) Failure of outpatient treatment Assessment/Plan: Keflex qid and Bactrim bid - pt took from Wed night till , but neither Wed am before going to see Dr. Wood and then ER Code(s): Z78.9 - OTHER SPECIFIED HEALTH STATUS (4) Morbid obesity with BMI of 45.0-49.9, adult Code(s): E66.01 - MORBID (SEVERE) OBESITY DUE TO EXCESS CALORIES; Z68.42 - BODY MASS INDEX (BMI) 45.0-49.9, ADULT
[2017-10-01] MEDS ORDERED: VANCOMYCIN 1,250 MG in DEXTROSE 5%-WATER - 250 ML IVPB ONE (18:15)
[2017-10-02] MEDS ORDERED: PIPERACILLIN/TAZOBACTAM 3.375 GM VIAL IVPB ONE ×3 (01:41→19:01)
[2017-10-02] MEDS ORDERED: DEXTROSE 5%-WATER - 50 ML IVPB ONE ×3 (01:42→19:01)
[2017-10-02] MEDS: PIPERACILLIN/TAZOB 3.375 GM 3.375 GM in DEXTROSE 5%-WATER - 50 ML IVPB SCH ×3 (04:19→19:05)
[2017-10-02] MEDS: ACETAMINOPHEN 325 MG TABLET (FP) PO PRN ×3 (04:32→22:55)
[2017-10-02] MEDS: HEPARIN NA (PORCINE) 5,000 UNITS/ML 1ML VIAL SQ SCH ×2 (09:41→21:00)
--- NOTE | 2017-10-02 13:32 | PN ---
Progress Note, Physician History of Present Illness: patient doing well cellulitis improving still red - Current Medication List Current Medications: Active Medications Acetaminophen (Tylenol -) 650 mg PO Q6H PRN PRN Reason: FEVER Last Admin: 10/02/17 04:32 Dose: 650 mg Heparin Sodium (Porcine) (Heparin -) 5,000 unit SQ BID ZIGGY Last Admin: 10/02/17 09:41 Dose: 5,000 unit Piperacillin Sod/Tazobactam (Sod 3.375 gm/ Dextrose) 50 mls @ 100 mls/hr IVPB Q8H-IV ZIGGY; Protocol Last Admin: 10/02/17 09:42 Dose: 100 mls/hr - Objective Vital Signs: Vital Signs Temperature 97.6 F 10/02/17 05:45 Pulse Rate 65 10/02/17 05:45 Respiratory Rate 18 10/02/17 09:00 Blood Pressure 105/41 10/02/17 05:45 O2 Sat by Pulse Oximetry (%) 100 10/02/17 09:00 Constitutional: Yes: No Distress, Calm, Obese Cardiovascular: Yes: Regular Rate and Rhythm Respiratory: Yes: Regular, CTA Bilaterally Gastrointestinal: Yes: Normal Bowel Sounds, Soft Musculoskeletal: Yes: Other Extremities: Yes: Erythema (rt thigh improving), Other Neurological: Yes: Alert, Oriented Psychiatric: Yes: Alert, Oriented Labs: CBC, BMP 09/30/17 06:40 09/30/17 06:40 Assessment/Plan Problem List - Problems (1) Cellulitis and abscess of right leg Code(s): L03.115 - CELLULITIS OF RIGHT LOWER LIMB; L02.415 - CUTANEOUS ABSCESS OF RIGHT LOWER LIMB 2 pain 3 morbid obesity plan continue iv abx rest continue current mgmt will monitor the central swelling rest as per the team
--- NOTE | 2017-10-02 13:52 | PN ---
Progress Note, Physician History of Present Illness: Pt with right distal inner thigh cellulitis with central area of induration. Took shower today. On Zosyn, Vanco restarted yesterday. 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 Mildly tender, no drainage. No fevers. Ambulating well. - Current Medication List Current Medications: Active Medications Acetaminophen (Tylenol -) 650 mg PO Q6H PRN PRN Reason: FEVER Last Admin: 10/02/17 04:32 Dose: 650 mg Heparin Sodium (Porcine) (Heparin -) 5,000 unit SQ BID ZIGGY Last Admin: 10/02/17 09:41 Dose: 5,000 unit Piperacillin Sod/Tazobactam (Sod 3.375 gm/ Dextrose) 50 mls @ 100 mls/hr IVPB Q8H-IV ZIGGY; Protocol Last Admin: 10/02/17 09:42 Dose: 100 mls/hr Vancomycin HCl 1,250 mg/ (Dextrose) 250 mls @ 250 mls/2 hr IVPB DAILY@1400 ZIGGY ; Protocol - Objective Vital Signs: Vital Signs Temperature 97.6 F 10/02/17 05:45 Pulse Rate 65 10/02/17 05:45 Respiratory Rate 18 10/02/17 09:00 Blood Pressure 105/41 10/02/17 05:45 O2 Sat by Pulse Oximetry (%) 100 10/02/17 09:00 Constitutional: Yes: No Distress, Calm, Obese Eyes: Yes: Conjunctiva Clear, EOM Intact HENT: Yes: Atraumatic, Normocephalic Musculoskeletal: No: Joint Stiffness, Joint Swelling Extremities: Yes: Erythema (R distal inner thigh, little less than yesterday, 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 No: Cool, Cyanosis Integumentary: Yes: Erythema (see above). No: Jaundice, Rash Wound/Incision: Yes: Open to air, Reddened (less). No: Draining Neurological: Yes: Alert, Oriented. No: Unsteady Gait Labs: no new labs Problem List - Problems (1) Cellulitis of right thigh Assessment/Plan: no mature abscess at this time - would not I&D yet cellulitis improving on Zosyn, Vanco added per ID pt able to ambulate, pain and tenderness minimal may develop drainable collection, will follow to monitor using warm compresses several times a day Discussed with Dr. Padgett Thank you for the opportunity to participate in the care of this patient. Code(s): L03.115 - CELLULITIS OF RIGHT LOWER LIMB (2) Right thigh pain Code(s): M79.651 - PAIN IN RIGHT THIGH (3) Failure of outpatient treatment Assessment/Plan: Keflex qid and Bactrim bid - pt took from Wed night till , but neither Wed am before going to see Dr. Wood and then ER Code(s): Z78.9 - OTHER SPECIFIED HEALTH STATUS (4) Morbid obesity with BMI of 45.0-49.9, adult Code(s): E66.01 - MORBID (SEVERE) OBESITY DUE TO EXCESS CALORIES; Z68.42 - BODY MASS INDEX (BMI) 45.0-49.9, ADULT
[2017-10-02] MEDS: VANCOMYCIN 1,250 MG in DEXTROSE 5%-WATER - 250 ML IVPB SCH (14:51)
--- NOTE | 2017-10-02 18:46 | PN ---
Progress Note, Physician History of Present Illness: doing well - Current Medication List Current Medications: Active Medications Acetaminophen (Tylenol -) 650 mg PO Q6H PRN PRN Reason: FEVER Last Admin: 10/02/17 15:32 Dose: 650 mg Heparin Sodium (Porcine) (Heparin -) 5,000 unit SQ BID ZIGGY Last Admin: 10/02/17 09:41 Dose: 5,000 unit Piperacillin Sod/Tazobactam (Sod 3.375 gm/ Dextrose) 50 mls @ 100 mls/hr IVPB Q8H-IV ZIGGY; Protocol Last Admin: 10/02/17 09:42 Dose: 100 mls/hr Vancomycin HCl 1,250 mg/ (Dextrose) 250 mls @ 250 mls/2 hr IVPB DAILY@1400 ZIGGY ; Protocol Last Admin: 10/02/17 14:51 Dose: 250 mls/2 hr - Objective Vital Signs: Vital Signs Temperature 97.9 F 10/02/17 15:40 Pulse Rate 62 10/02/17 15:40 Respiratory Rate 20 10/02/17 15:40 Blood Pressure 101/53 10/02/17 15:40 O2 Sat by Pulse Oximetry (%) 100 10/02/17 09:00 Constitutional: Yes: No Distress HENT: Yes: Atraumatic Neck: Yes: Supple Cardiovascular: Yes: Regular Rate and Rhythm Gastrointestinal: Yes: Normal Bowel Sounds Extremities: Yes: Other (R jess distal inner thigh ..area of induration and redness) Neurological: Yes: Alert, Oriented Labs: CBC, BMP 09/30/17 06:40 09/30/17 06:40 Problem List - Problems (1) Cellulitis and abscess of right leg Assessment/Plan: iv abx prn pain meds surgery note reviewed Code(s): L03.115 - CELLULITIS OF RIGHT LOWER LIMB; L02.415 - CUTANEOUS ABSCESS OF RIGHT LOWER LIMB
[2017-10-03] MEDS ORDERED: DEXTROSE 5%-WATER - 50 ML IVPB ONE ×3 (00:45→16:47)
[2017-10-03] MEDS ORDERED: PIPERACILLIN/TAZOBACTAM 3.375 GM VIAL IVPB ONE ×3 (00:45→16:46)
[2017-10-03] MEDS: PIPERACILLIN/TAZOB 3.375 GM 3.375 GM in DEXTROSE 5%-WATER - 50 ML IVPB SCH ×3 (01:29→18:25)
[2017-10-03] MEDS: HEPARIN NA (PORCINE) 5,000 UNITS/ML 1ML VIAL SQ SCH ×2 (09:15→21:25)
[2017-10-03] MEDS: VANCOMYCIN 1,250 MG in DEXTROSE 5%-WATER - 250 ML IVPB SCH (14:17)
[2017-10-03] MEDS: ACETAMINOPHEN 325 MG TABLET (FP) PO PRN ×2 (14:23→20:57)
--- NOTE | 2017-10-03 16:31 | PN ---
Progress Note, Physician History of Present Illness: Pt with right distal inner thigh cellulitis with central area of induration. On Zosyn, Vanco per ID. Erythema receding. No fevers. Ambulating well. "It doesn't hurt anymore." - Current Medication List Current Medications: Active Medications Acetaminophen (Tylenol -) 650 mg PO Q6H PRN PRN Reason: FEVER Last Admin: 10/03/17 14:23 Dose: 650 mg Heparin Sodium (Porcine) (Heparin -) 5,000 unit SQ BID ZIGGY Last Admin: 10/03/17 09:15 Dose: 5,000 unit Piperacillin Sod/Tazobactam (Sod 3.375 gm/ Dextrose) 50 mls @ 100 mls/hr IVPB Q8H-IV ZIGGY; Protocol Last Admin: 10/03/17 09:15 Dose: 100 mls/hr Vancomycin HCl 1,250 mg/ (Dextrose) 250 mls @ 250 mls/2 hr IVPB DAILY@1400 ZIGGY ; Protocol Last Admin: 10/03/17 14:17 Dose: 250 mls/2 hr - Objective Vital Signs: Vital Signs Temperature 97.9 F 10/03/17 15:23 Pulse Rate 75 10/03/17 15:23 Respiratory Rate 20 10/03/17 15:23 Blood Pressure 122/68 10/03/17 15:23 O2 Sat by Pulse Oximetry (%) 97 10/03/17 09:00 Constitutional: Yes: No Distress, Calm, Obese Eyes: Yes: Conjunctiva Clear, EOM Intact HENT: Yes: Atraumatic, Normocephalic Musculoskeletal: No: Joint Stiffness, Joint Swelling Extremities: Yes: Erythema (inner distal right thigh, still receding, fading pink, central area slightly darker with pale halo, still indurated, but little less so, no drainage expressible, mild tenderness only). No: Cool, Cyanosis Integumentary: Yes: Erythema (see above). No: Jaundice Neurological: Yes: Alert, Oriented Labs: no new labs Problem List - Problems (1) Cellulitis of right thigh Assessment/Plan: no mature abscess, still with central area of induration cellulitis improving on Zosyn, Vanco pt able to ambulate, pain and tenderness minimal may develop drainable collection, will follow to monitor pt prefers not to have I&D with local anesthesia use warm compresses several times a day - ordered Code(s): L03.115 - CELLULITIS OF RIGHT LOWER LIMB (2) Right thigh pain Code(s): M79.651 - PAIN IN RIGHT THIGH (3) Failure of outpatient treatment Assessment/Plan: Keflex qid and Bactrim bid - pt took from Wed till , but neither Wed am before going to see Dr. Wood and then ER Code(s): Z78.9 - OTHER SPECIFIED HEALTH STATUS (4) Morbid obesity with BMI of 45.0-49.9, adult Code(s): E66.01 - MORBID (SEVERE) OBESITY DUE TO EXCESS CALORIES; Z68.42 - BODY MASS INDEX (BMI) 45.0-49.9, ADULT
--- NOTE | 2017-10-03 19:24 | PN ---
Progress Note, Physician History of Present Illness: doing well - Current Medication List Current Medications: Active Medications Acetaminophen (Tylenol -) 650 mg PO Q6H PRN PRN Reason: FEVER Last Admin: 10/03/17 14:23 Dose: 650 mg Heparin Sodium (Porcine) (Heparin -) 5,000 unit SQ BID ZIGGY Last Admin: 10/03/17 09:15 Dose: 5,000 unit Piperacillin Sod/Tazobactam (Sod 3.375 gm/ Dextrose) 50 mls @ 100 mls/hr IVPB Q8H-IV ZIGGY; Protocol Last Admin: 10/03/17 18:25 Dose: 100 mls/hr Vancomycin HCl 1,250 mg/ (Dextrose) 250 mls @ 250 mls/2 hr IVPB DAILY@1400 ZIGGY ; Protocol Last Admin: 10/03/17 14:17 Dose: 250 mls/2 hr - Objective Vital Signs: Vital Signs Temperature 97.9 F 10/03/17 15:23 Pulse Rate 75 10/03/17 15:23 Respiratory Rate 20 10/03/17 15:23 Blood Pressure 122/68 10/03/17 15:23 O2 Sat by Pulse Oximetry (%) 97 10/03/17 09:00 Constitutional: Yes: No Distress HENT: Yes: Atraumatic Neck: Yes: Supple Cardiovascular: Yes: Regular Rate and Rhythm Respiratory: Yes: CTA Bilaterally Gastrointestinal: Yes: Normal Bowel Sounds Extremities: Yes: Other (R distal inner thig induration improving) Neurological: Yes: Alert, Oriented Labs: CBC, BMP 09/30/17 06:40 09/30/17 06:40 Problem List - Problems (1) Cellulitis and abscess of right leg Assessment/Plan: iv abx prn pain meds surgery note reviewed Code(s): L03.115 - CELLULITIS OF RIGHT LOWER LIMB; L02.415 - CUTANEOUS ABSCESS OF RIGHT LOWER LIMB
--- NOTE | 2017-10-03 21:18 | PN ---
Progress Note, Physician - Current Medication List Current Medications: Active Medications Acetaminophen (Tylenol -) 650 mg PO Q6H PRN PRN Reason: FEVER Last Admin: 10/03/17 20:57 Dose: 650 mg Heparin Sodium (Porcine) (Heparin -) 5,000 unit SQ BID ZIGGY Last Admin: 10/03/17 09:15 Dose: 5,000 unit Piperacillin Sod/Tazobactam (Sod 3.375 gm/ Dextrose) 50 mls @ 100 mls/hr IVPB Q8H-IV ZIGGY; Protocol Last Admin: 10/03/17 18:25 Dose: 100 mls/hr Vancomycin HCl 1,250 mg/ (Dextrose) 250 mls @ 250 mls/2 hr IVPB DAILY@1400 ZIGGY ; Protocol Last Admin: 10/03/17 14:17 Dose: 250 mls/2 hr - Objective Vital Signs: Vital Signs Temperature 97.9 F 10/03/17 15:23 Pulse Rate 75 10/03/17 15:23 Respiratory Rate 20 10/03/17 15:23 Blood Pressure 122/68 10/03/17 15:23 O2 Sat by Pulse Oximetry (%) 97 10/03/17 09:00 Labs: CBC, BMP 09/30/17 06:40 09/30/17 06:40
[2017-10-04] MEDS ORDERED: PIPERACILLIN/TAZOBACTAM 3.375 GM VIAL IVPB ONE ×2 (00:41→10:05)
[2017-10-04] MEDS ORDERED: DEXTROSE 5%-WATER - 50 ML IVPB ONE ×2 (00:41→10:05)
[2017-10-04] MEDS: PIPERACILLIN/TAZOB 3.375 GM 3.375 GM in DEXTROSE 5%-WATER - 50 ML IVPB SCH ×2 (01:24→10:07)
[2017-10-04] MEDS: HEPARIN NA (PORCINE) 5,000 UNITS/ML 1ML VIAL SQ SCH (10:07)
--- NOTE | 2017-10-04 12:34 | PN ---
Progress Note, Physician History of Present Illness: patient doing well cellulitits has nearly resolved still with some induration and swelling minimal pain - Current Medication List Current Medications: Active Medications Acetaminophen (Tylenol -) 650 mg PO Q6H PRN PRN Reason: FEVER Last Admin: 10/03/17 20:57 Dose: 650 mg Heparin Sodium (Porcine) (Heparin -) 5,000 unit SQ BID ZIGGY Last Admin: 10/04/17 10:07 Dose: 5,000 unit Piperacillin Sod/Tazobactam (Sod 3.375 gm/ Dextrose) 50 mls @ 100 mls/hr IVPB Q8H-IV ZIGGY; Protocol Last Admin: 10/04/17 10:07 Dose: 100 mls/hr Vancomycin HCl 1,250 mg/ (Dextrose) 250 mls @ 250 mls/2 hr IVPB DAILY@1400 ZIGGY ; Protocol Last Admin: 10/03/17 14:17 Dose: 250 mls/2 hr - Objective Vital Signs: Vital Signs Temperature 97.7 F 10/04/17 09:52 Pulse Rate 78 10/04/17 09:52 Respiratory Rate 18 10/04/17 09:52 Blood Pressure 120/63 10/04/17 09:52 O2 Sat by Pulse Oximetry (%) 97 10/03/17 21:00 Constitutional: Yes: No Distress, Calm, Obese Cardiovascular: Yes: Regular Rate and Rhythm Respiratory: Yes: Regular, CTA Bilaterally Gastrointestinal: Yes: Normal Bowel Sounds, Soft Musculoskeletal: Yes: WNL Extremities: Yes: Erythema (resolving), Other Neurological: Yes: Alert, Oriented Psychiatric: Yes: Alert, Oriented Labs: CBC, BMP 09/30/17 06:40 09/30/17 06:40 Assessment/Plan Problem List - Problems (1) Cellulitis and abscess of right leg Code(s): L03.115 - CELLULITIS OF RIGHT LOWER LIMB; L02.415 - CUTANEOUS ABSCESS OF RIGHT LOWER LIMB 2 pain 3 morbid obesity plan we can switch patient to oral augmentin and clinda for another 7 days rest continue current mgmt
[2017-10-04] MEDS: VANCOMYCIN 1,250 MG in DEXTROSE 5%-WATER - 250 ML IVPB SCH (13:27)
[2017-10-04] MEDS: ACETAMINOPHEN 325 MG TABLET (FP) PO PRN (13:39)
--- NOTE | 2017-10-04 14:00 | PN ---
Progress Note, Physician History of Present Illness: Pt with right distal inner thigh cellulitis with central area of induration. Erythema fading well. No fevers. Ambulating well. No pain. - Current Medication List Current Medications: Active Medications Acetaminophen (Tylenol -) 650 mg PO Q6H PRN PRN Reason: FEVER Last Admin: 10/04/17 13:39 Dose: 650 mg Heparin Sodium (Porcine) (Heparin -) 5,000 unit SQ BID ZIGGY Last Admin: 10/04/17 10:07 Dose: 5,000 unit Piperacillin Sod/Tazobactam (Sod 3.375 gm/ Dextrose) 50 mls @ 100 mls/hr IVPB Q8H-IV ZIGGY; Protocol Last Admin: 10/04/17 10:07 Dose: 100 mls/hr Vancomycin HCl 1,250 mg/ (Dextrose) 250 mls @ 250 mls/2 hr IVPB DAILY@1400 ZIGGY ; Protocol Last Admin: 10/04/17 13:27 Dose: 250 mls/2 hr - Objective Vital Signs: Vital Signs Temperature 97.7 F 10/04/17 09:52 Pulse Rate 78 10/04/17 09:52 Respiratory Rate 18 10/04/17 09:52 Blood Pressure 120/63 10/04/17 09:52 O2 Sat by Pulse Oximetry (%) 97 10/03/17 21:00 Constitutional: Yes: No Distress, Calm, Obese Eyes: Yes: Conjunctiva Clear, EOM Intact HENT: Yes: Atraumatic, Normocephalic Musculoskeletal: No: Joint Stiffness, Joint Swelling Extremities: Yes: Erythema (distal inner right thigh - faded to pink, small area left around central spot of mild induration and slightly darker center, no drainage, no william punctum, mildly tender only). No: Cool, Cyanosis Integumentary: Yes: Erythema (see above). No: Rash Neurological: Yes: Alert, Oriented Labs: no new labs Problem List - Problems (1) Cellulitis of right thigh Assessment/Plan: no mature abscess, still with slightly smaller central area of induration cellulitis improved on Zosyn, Vanco - changed to Augmentin and Clinda for d/c home advised to continue warm compresses several times a day pt to f/u with medicine and ID no need for surgical f/u unless develops need for I&D Code(s): L03.115 - CELLULITIS OF RIGHT LOWER LIMB (2) Right thigh pain Code(s): M79.651 - PAIN IN RIGHT THIGH (3) Failure of outpatient treatment Code(s): Z78.9 - OTHER SPECIFIED HEALTH STATUS (4) Morbid obesity with BMI of 45.0-49.9, adult Code(s): E66.01 - MORBID (SEVERE) OBESITY DUE TO EXCESS CALORIES; Z68.42 - BODY MASS INDEX (BMI) 45.0-49.9, ADULT
[2017-10-04 15:14] VITALS: BP 118/63; PULSE 68; TEMP 98.4
--- NOTE | 2017-10-04 20:56 | DS ---
Physical Examination Vital Signs: Vital Signs Temperature 98.4 F 10/04/17 14:11 Pulse Rate 68 10/04/17 14:11 Respiratory Rate 20 10/04/17 14:11 Blood Pressure 118/63 10/04/17 14:11 O2 Sat by Pulse Oximetry (%) 97 10/04/17 09:00 Constitutional: Yes: No Distress HENT: Yes: Atraumatic Neck: Yes: Supple Cardiovascular: Yes: Regular Rate and Rhythm Respiratory: Yes: CTA Bilaterally Gastrointestinal: Yes: Normal Bowel Sounds Extremities: Yes: Other (R thigh cellulitis much improved) Neurological: Yes: Alert, Oriented Labs: CBC, BMP 09/30/17 06:40 09/30/17 06:40 Discharge Summary Reason For Visit: CELLULITIS Condition: Fair - Instructions Disposition: HOME - Home Medications Comprehensive Discharge Medication List: Ambulatory Orders Amoxicillin/Potassium Clav [Augmentin 875-125 Tablet] 1 each PO BID #14 tablet 10/03/17 Clindamycin [Cleocin -] 300 mg PO Q6HPO #28 capsule 10/03/17 ne home
== END 2017-10-04 15:40 | disposition home or self-care (01) | DRG 383 ==
LOC: JER 12:24 → JERBED 14:45 → J5S 16:55
PROVIDERS: ADMIT Internal Medicine; ATTEND Internal Medicine
DX: L03.115 Cellulitis of right lower limb (principal); M79.651 Pain in right thigh; E66.01 Morbid (severe) obesity due to excess calories; Z68.42 Body mass index [BMI] 45.0-49.9, adult; F17.210 Nicotine dependence, cigarettes, uncomplicated
CPT/HCPCS: 36415; 80053; 84703; 85025; 85651; 86140; 87040; 99284-25; J1644

== ENCOUNTER 2018-02-26 14:10 | Emergency (ER) | payer OTHER ==
[2018-02-26 14:19] VITALS: BP 104/70; PULSE 74; TEMP 98.1; BMI 44.6
--- NOTE | 2018-02-26 14:37 | PDOC ---
History of Present Illness - General Chief Complaint: Back Pain Stated Complaint: LOW BACK PAIN Time Seen by Provider: 02/26/18 14:37 History Source: Patient Exam Limitations: No Limitations - History of Present Illness Initial Comments: 02/26/18 14:50 Patient came for evaluation of low back strain and spasm. States onset was last week has tried Tylenol Motrin with minimal resolved. 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 No recent, no history of car accident back injury. denies fevers, history of URI, no dysuria or bowel problems Occurred: reports: last week Severity: reports: mild, moderate Pain Location: reports: back Method of Injury: Yes: unknown Modifying Factors: improves with: None Loss of Consciousness: no loss of consciousness Associated Symptoms (Fall): denies symptoms Past History - Travel Traveled outside of the country in the last 30 days: No Close contact w/someone who was outside of country & ill: No - Past Medical History Allergies/Adverse Reactions: Allergies Allergy/AdvReac Type Severity Reaction Status Date / Time wheat Allergy Unknown Verified 02/26/18 14:16 egg whites Allergy Unknown Uncoded 02/26/18 14:16 peanuts Allergy Unknown Uncoded 02/26/18 14:16 Home Medications: Ambulatory Orders Cyclobenzaprine HCl 10 mg PO Q8H PRN #14 tablet 02/26/18 Naproxen [Naprosyn -] 500 mg PO BID #30 tablet 02/26/18 Asthma: No Cancer: No Cardiac Disorders: No COPD: No Diabetes: No HTN: No Seizures: No Thyroid Disease: No - Suicide/Smoking/Psychosocial Hx Smoking Status: No Smoking History: Current some day smoker Have you smoked in the past 12 months: Yes Number of Cigarettes Smoked Daily: 5 If you are a former smoker, when did you quit?: Information on smoking cessation initiated: Yes 'Breaking Loose' booklet given: 09/29/17 Hx Alcohol Use: No Drug/Substance Use Hx: No Substance Use Type: None Hx Substance Use Treatment: No Review of Systems - Review of Systems Able to Perform ROS?: Yes Is the patient limited [place]ian proficient: Yes Constitutional: Yes: Symptoms Reported, See HPI, Malaise HEENTM: Yes: See HPI. No: Symptoms Reported Respiratory: Yes: See HPI. No: Symptoms reported, Cough Musculoskeletal: Yes: Symptoms Reported, See HPI, Back Pain Integumentary: Yes: See HPI. No: Symptoms Reported, Bruising All Other Systems: Reviewed and Negative *Physical Exam - Vital Signs Last Vital Signs Temp Pulse Resp BP Pulse Ox 98.1 F 74 16 104/70 99 02/26/18 14:17 02/26/18 14:17 02/26/18 14:17 02/26/18 14:17 02/26/18 14:17 - Physical Exam General Appearance: Yes: Nourished, Appropriately Dressed, Apparent Distress, Mild Distress HEENT: positive: MYLES, Normal ENT Inspection, TMs Normal, Pharynx Normal Neck: positive: Supple. negative: Tender, Lymphadenopathy (R), Lymphadenopathy (L) Respiratory/Chest: positive: Lungs Clear, Normal Breath Sounds Gastrointestinal/Abdominal: positive: Normal Bowel Sounds, Soft. negative: Tender Musculoskeletal: positive: Normal Inspection, Muscle Spasm (10th tight musculature to the paravertebral spinous muscles and lumbar spine. Unable to bend and extend without tenderness reproduced, worse on the right than the left. Neurovascular intact to legs, no CVA tenderness.). negative: CVA Tenderness, Vertebral Tenderness Extremity: positive: Normal Capillary Refill, Normal Inspection. 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 NML intact, Fully Oriented, Alert, Normal Mood/ Affect, Normal Response, Motor Strength 5/5 Moderate Sedation - Procedure Monitoring Vital Signs: Procedure Monitoring Vital Signs Temperature 98.1 F 02/26/18 14:17 Pulse Rate 74 02/26/18 14:17 Respiratory Rate 16 02/26/18 14:17 Blood Pressure 104/70 02/26/18 14:17 O2 Sat by Pulse Oximetry (%) 99 02/26/18 14:17 Progress Note - Progress Note Progress Note: low back strain, *DC/Admit/Observation/Transfer Diagnosis at time of Disposition: Low back strain Qualifiers: Encounter type: initial encounter Qualified Code(s): S39.012A - Strain of muscle, fascia and tendon of lower back, initial encounter - Discharge Dispostion Disposition: HOME Condition at time of disposition: Stable Decision to Admit order: No - Prescriptions Prescriptions: Cyclobenzaprine HCl 10 mg PO Q8H PRN #14 tablet PRN Reason: spasm Naproxen [Naprosyn -] 500 mg PO BID #30 tablet - Referrals - Patient Instructions Printed Discharge Instructions: DI for Back Strain or Sprain Additional Instructions: Rest, no heavy lifting or exercise until pain is resolved Hot soaks to neck and low back as often as possible/hot showers or Jacuzzis No massage or therapy until spasm is gone Continue Naprosyn 500 mg tablet, 1 tablet every 12 hours for the next 3 days then as needed for pain and swelling Cyclobenzaprine 1-10mg every 8 hours as needed for spasm If not significant improvement within 24 hours with medication and rest regime, followup with private physician for change in medications and /or therapy. - Post Discharge Activity Forms/Work/School Notes: Back to Work
== END 2018-02-26 15:09 | disposition home or self-care (01) ==
LOC: JERFT 14:10
DX: S39.012A Strain of muscle, fascia and tendon of lower back, initial encounter (principal); X58.XXXA Exposure to other specified factors, initial encounter; Y93.89 Activity, other specified; Y92.89 Other specified places as the place of occurrence of the external cause; Y99.8 Other external cause status
CPT/HCPCS: 99281-25

== ENCOUNTER 2018-09-29 02:46 | Emergency (ER) | payer OTHER ==
[2018-09-29 03:48] VITALS: BP 116/84; PULSE 80; TEMP 98.9; BMI 47.2
--- NOTE | 2018-09-29 07:33 | PDOC ---
History of Present Illness - General Chief Complaint: Eye Problem Stated Complaint: INJURY, LT EYE Time Seen by Provider: 09/29/18 07:23 Past History - Past Medical History Allergies/Adverse Reactions: Allergies Allergy/AdvReac Type Severity Reaction Status Date / Time wheat Allergy Unknown Verified 09/29/18 15:51 egg whites Allergy Unknown Uncoded 09/29/18 15:51 peanuts Allergy Unknown Uncoded 09/29/18 15:51 Home Medications: Ambulatory Orders Bacitracin Ophthalmic Oint - 1 applic TP BID #1 tube 09/29/18 Asthma: No Cancer: No Cardiac Disorders: No COPD: No Diabetes: No HTN: No Seizures: No Thyroid Disease: No - Suicide/Smoking/Psychosocial Hx Smoking Status: No Smoking History: Never smoked Have you smoked in the past 12 months: No Number of Cigarettes Smoked Daily: 5 If you are a former smoker, when did you quit?: Information on smoking cessation initiated: No 'Breaking Loose' booklet given: 09/29/17 Hx Alcohol Use: No Drug/Substance Use Hx: No Substance Use Type: None Hx Substance Use Treatment: No *Physical Exam - Vital Signs Last Vital Signs Temp Pulse Resp BP Pulse Ox 98.9 F 80 19 116/84 99 09/29/18 02:46 09/29/18 02:46 09/29/18 02:46 09/29/18 02:46 09/29/18 02:46 Medical Decision Making - Medical Decision Making 09/29/18 07:32 Patient unable to be located within the waiting area, ER hallways, and waiting area. As per other patient's family, patient stated she was going to leave if unable to be seen approximately a half hour ago. *DC/Admit/Observation/Transfer Diagnosis at time of Disposition: Eye problem, Patient left before evaluation by physician - Discharge Dispostion Disposition: LEFT BEFORE MED EVAL, [facility] Condition at time of disposition: Unchanged/Unknown - Referrals Referrals: Concepcion Carroll MD [Primary Care Provider] - - Patient Instructions - Post Discharge Activity
== END 2018-09-29 07:32 | disposition left against medical advice (07) ==
LOC: JER 02:46
DX: Z53.21 Procedure and treatment not carried out due to patient leaving prior to being seen by health care provider (principal)
CPT/HCPCS: 99281-25

== ENCOUNTER 2018-09-29 15:40 | Emergency (ER) | payer OTHER ==
[2018-09-29 15:51] VITALS: BP 126/59; PULSE 79; TEMP 98.4; BMI 35.9
--- NOTE | 2018-09-29 16:48 | PDOC ---
History of Present Illness - General Chief Complaint: Injury Stated Complaint: EYE PROBLEM Time Seen by Provider: 09/29/18 15:49 History Source: Patient - History of Present Illness Initial Comments: 09/29/18 17:02 Chief complaint: Laceration Patient is a healthy 28-year-old female who states she was walking up the stairs last night, about 2 AM, and fell up the stairs, her glasses hit her face and cut her left face. No LOC, not sure when last tetanus was. She came to the ER but had to leave at 6 AM to take her kids to school. She returned this afternoon for evaluation. Patient denies any eye injury or visual problems, patient states she was wearing her glasses when she fell GENERAL/CONSTITUTIONAL: No fever, weakness. dizziness HEAD, EYES, EARS, NOSE AND THROAT: No change in vision. No ear pain or discharge. No sore throat. CARDIOVASCULAR: No chest pain RESPIRATORY: No shortness of breath or cough GASTROINTESTINAL: No pain, nausea, vomiting, diarrhea or constipation GENITOURINARY: No dysuria MUSCULOSKELETAL: No neck or back pain SKIN: No rash, + laceration NEUROLOGIC: No headache, vertigo, loss of consciousness, or loss of sensation. GENERAL: The patient is awake, alert, and fully oriented, in no acute distress. HEAD: 6 cm laceration starting just below the left eyelid, going around the left side of the nose, with scab, superficial, well approximated, not able to separate. No signs of infection. Left lower eyelid with small piece of skin avulsed, raised, necrotic, otherwise no open, wounds Normal with no signs of trauma. EYES: Pupils equal, round and reactive to light, sclera anicteric, conjunctiva clear. ENT: pharynx: no erythema, no exudate, uvula midline NECK: supple CHEST: clear, nontender, rr ABD: soft, nontender BACK: no tenderness or signs of injury EXTREMITIES: Normal range of motion, no edema. NEUROLOGICAL: Cranial nerves II through XII grossly intact, no gross focal abnormalities SKIN: Warm, Dry Past History - Past Medical History Allergies/Adverse Reactions: Allergies Allergy/AdvReac Type Severity Reaction Status Date / Time wheat Allergy Unknown Verified 09/29/18 15:51 egg whites Allergy Unknown Uncoded 09/29/18 15:51 peanuts Allergy Unknown Uncoded 09/29/18 15:51 Home Medications: Ambulatory Orders Bacitracin Ophthalmic Oint - 1 applic TP BID #1 tube 09/29/18 Asthma: No Cancer: No Cardiac Disorders: No COPD: No Diabetes: No HTN: No Seizures: No Thyroid Disease: No - Suicide/Smoking/Psychosocial Hx Smoking Status: No Smoking History: Never smoked Have you smoked in the past 12 months: No Number of Cigarettes Smoked Daily: 5 If you are a former smoker, when did you quit?: Information on smoking cessation initiated: No 'Breaking Loose' booklet given: 09/29/17 Hx Alcohol Use: No Drug/Substance Use Hx: No Substance Use Type: None Hx Substance Use Treatment: No *Physical Exam - Vital Signs Last Vital Signs Temp Pulse Resp BP Pulse Ox 98.4 F 79 19 126/59 L 98 09/29/18 15:49 09/29/18 15:49 09/29/18 15:49 09/29/18 15:49 09/29/18 15:49 Procedures - Additional Procedures Progress: 09/29/18 18:10 Lower eyelid infiltrated with small amount of 1% lidocaine, small piece of necrotic loose skin removed with #11 blade, no bleeding, rest of wound is well approximated and healing Medical Decision Making - Medical Decision Making 09/29/18 17:05 Healthy 28-year-old female who sustained facial laceration last night at 2 AM, wound is basically healing, well approximated, scab forming, unable to separate , no suturing indicated. Patient needs tetanus, small necrotic piece of skin raised to the lower eyelid, will give small amount of local anesthesia, and debridement for better appearance and healing. Patient will be instructed to apply up, bacitracin, apply sunscreen for at least 3 months and will follow-up with plastics if she has any other concerns. Discussed issues, findings, results, applicable medications and treatments and follow-up. All these were understood and all questions were answered *DC/Admit/Observation/Transfer Diagnosis at time of Disposition: Facial laceration Qualifiers: Encounter type: initial encounter Qualified Code(s): S01.81XA - Laceration without foreign body of other part of head, initial encounter - Discharge Dispostion Disposition: HOME Condition at time of disposition: Stable Decision to Admit order: No - Prescriptions Prescriptions: Bacitracin Ophthalmic Oint - 1 applic TP BID #1 tube - Referrals Referrals: Arthur Kinney MD [Staff Physician] - - Patient Instructions Printed Discharge Instructions: DI for Open Laceration Additional Instructions: you can gently clean it with soap and water and apply bacitracin at least 2 times daily. you may get the bacitracin in your eye Have reevaluated if redness, pus or signs of infection apply sunscreen every day for at least 3 months. We'll reduce scarring, if you have any other issues, follow-up with plastic surgeon .This will take about one year to fully heal. - Post Discharge Activity
[2018-09-29] MEDS ORDERED: DIPHTH,PERTUSS(ACELL),TET 0.5 ML DISP.SYRIN IM ONE ×2 (17:00→17:08)
[2018-09-29] MEDS ORDERED: ACETAMINOPHEN 325 MG TABLET (FP) PO ONE (17:10)
[2018-09-29] MEDS ORDERED: ACETAMINOPHEN 325 MG TABLET (FP) ONE (17:11)
== END 2018-09-29 17:16 | disposition home or self-care (01) ==
LOC: JERFT 15:40
PROC: 0HQ1XZZ Repair Face Skin, External Approach (ICD-10-PCS; principal; 2018-09-29)
DX: S01.81XA Laceration without foreign body of other part of head, initial encounter (principal); W10.8XXA Fall (on) (from) other stairs and steps, initial encounter; Y93.89 Activity, other specified; Y92.89 Other specified places as the place of occurrence of the external cause; Y99.8 Other external cause status
CPT/HCPCS: 90715; 99281-25

== ENCOUNTER 2020-04-07 01:32 | Emergency (ER) | payer OTHER ==
[2020-04-07 01:58] VITALS: BP 126/83; PULSE 95; TEMP 98.4; BMI 47.2
[2020-04-07] MEDS ORDERED: ACETAMINOPHEN 325 MG TABLET (FP) PO ONE (02:43)
[2020-04-07] MEDS ORDERED: LIDOCAINE 5% TOPICAL PATCH TP ONE (02:44)
[2020-04-07] MEDS ORDERED: ACETAMINOPHEN 325 MG TABLET (FP) ONE (02:57)
[2020-04-07] MEDS ORDERED: LIDOCAINE 5% TOPICAL PATCH ONE (02:57)
[2020-04-07] MEDS ORDERED: IBUPROFEN 600 MG TABLET (FP) PO ONE (04:04)
[2020-04-07] MEDS ORDERED: LIDOCAINE PATCH REMOVAL MC ONE (15:00)
== END 2020-04-07 04:25 | disposition home or self-care (01) ==
LOC: JER 01:32
DX: S13.4XXA Sprain of ligaments of cervical spine, initial encounter (principal); M54.13 Radiculopathy, cervicothoracic region
CPT/HCPCS: 72050-TC-FY; 72070-TC-FY; 99284-25

== ENCOUNTER 2020-11-16 20:51 | Emergency (ER) | payer OTHER ==
[2020-11-16 21:02] VITALS: BMI 49.8
[2020-11-16 23:36] VITALS: BP 129/78; PULSE 82; TEMP 98.2
== END 2020-11-16 23:10 | disposition home or self-care (01) ==
LOC: JER 20:51
DX: O9A.213 Injury, poisoning and certain other consequences of external causes complicating pregnancy, third trimester (principal); W01.0XXA Fall on same level from slipping, tripping and stumbling without subsequent striking against object, initial encounter; Z3A.26 26 weeks gestation of pregnancy
CPT/HCPCS: 76819-TC; 99284-25

== ENCOUNTER 2020-11-29 16:16 | Emergency (ER) | payer OTHER ==
[2020-11-29 16:26] VITALS: BP 113/70; PULSE 89; TEMP 98.5; BMI 48.0
== END 2020-11-29 20:00 | disposition home or self-care (01) ==
LOC: JER 16:16
DX: U07.1 COVID-19 (principal)
CPT/HCPCS: 99283-25

== ENCOUNTER 2021-02-24 13:40 | Inpatient (IN) | payer OTHER ==
[2021-02-24] MEDS ORDERED: CITRIC ACID/SODIUM CITRATE 30 ML UNIT-DOSE CUP PO ONE (13:54)
[2021-02-24] MEDS ORDERED: ELECTROLYTE-148 SOLN 1,000 ML IV SCH (14:00)
[2021-02-24 14:58] VITALS: BMI 52.3
[2021-02-24] MEDS ORDERED: morphine SULFATE (PF) 1 MG/2 ML SYRINGE ONE (15:41)
[2021-02-24] MEDS ORDERED: ceFAZolin SODIUM 1 GM VIAL ONE (15:45)
[2021-02-24] MEDS ORDERED: OXYTOCIN 10 UNITS/ML VIAL ONE ×2 (16:15→16:21)
[2021-02-24] MEDS ORDERED: OXYTOCIN 20 UNITS in 0.9% NS 20 UNIT/1,000 ML INFUS.BAG IV ONE ×2 (16:15→18:00)
[2021-02-24] MEDS ORDERED: ONDANSETRON 4 MG/2 ML VIAL ONE (16:45)
[2021-02-24] MEDS ORDERED: KETOROLAC TROMETHAMINE 30 MG/1 ML VIAL ONE (16:45)
[2021-02-24 16:57] LABS: CORD HCO3 25.1 mmHg (20-29); CORD PCO2 59.6 mmHg (30-78); CORD pH 7.242 (7.14-7.44)
[2021-02-24 17:00] LABS: CORD BASE EXCESS -6.6 mmol/L (0-2); CORD HCO3 20.5 mmHg (20-29); CORD pH 7.266 (7.14-7.44)
[2021-02-24] MEDS ORDERED: ACETAMINOPHEN 325 MG TABLET (FP) PO PRN (17:01)
[2021-02-24] MEDS ORDERED: OXYTOCIN 20 UNITS in 0.9% NS 20 UNIT/1,000 ML INFUS.BAG IV SCH (17:15)
[2021-02-24] MEDS: METHYLERGONOVINE MALEATE 0.2 MG/1 ML AMP IM PRN (22:52)
[2021-02-25] MEDS ORDERED: oxyCODONE HCL 5 MG TABLET PO PRN ×2 (05:01)
[2021-02-25] MEDS: METHYLERGONOVINE MALEATE 0.2 MG/1 ML AMP IM PRN (06:02)
[2021-02-25] MEDS: SIMETHICONE 80 MG TAB.CHEW (FP) PO PRN ×4 (06:02→22:16)
[2021-02-25] MEDS: IBUPROFEN 600 MG TABLET (FP) PO PRN ×4 (06:03→22:15)
[2021-02-25] MEDS ORDERED: LEVOTHYROXINE NA 50 MCG TABLET (FP) PO SCH (07:00)
[2021-02-25 08:21] LABS: BASO % 0.2 % (0-2.0); EOS % 0.1 % (0-4.5); HEMATOCRIT 32.6 % (32.4-45.2); HEMOGLOBIN 11.1 GM/dL (10.7-15.3); LYMPH % 10.6 % (8-40); MCH 29.3 pg (25.7-33.7); MEAN CELL VOLUME 86.3 fl (80-96); MEAN PLT VOLUME 10.3 fl (7.5-11.1); MONO % 4.1 % (3.8-10.2); PLATELET COUNT 142 10^3/uL (134-434); RBC 3.78 M/mm3 (3.60-5.2); RDW 14.2 % (11.6-15.6); WHITE BLOOD COUNT 10.8 K/mm3 (4.0-10.0)
[2021-02-25] MEDS: ENOXAPARIN NA (PORCINE) 40 MG/0.4 ML DISP.SYRIN SQ SCH (09:23)
[2021-02-25] MEDS ORDERED: BISACODYL 10 MG SUPP.RECT RC PRN (17:01)
[2021-02-26] MEDS: LEVOTHYROXINE NA 100 MCG TABLET (FP) PO SCH (06:22)
[2021-02-26] MEDS: SIMETHICONE 80 MG TAB.CHEW (FP) PO PRN ×2 (06:28→12:28)
[2021-02-26] MEDS: IBUPROFEN 600 MG TABLET (FP) PO PRN ×2 (06:28→12:27)
[2021-02-26] MEDS: ENOXAPARIN NA (PORCINE) 40 MG/0.4 ML DISP.SYRIN SQ SCH (09:32)
[2021-02-27] MEDS: LEVOTHYROXINE NA 100 MCG TABLET (FP) PO SCH (06:48)
[2021-02-27] MEDS: SIMETHICONE 80 MG TAB.CHEW (FP) PO PRN (06:49)
[2021-02-27] MEDS: IBUPROFEN 600 MG TABLET (FP) PO PRN ×2 (06:49→11:22)
[2021-02-27 07:46] LABS: BASO % 0.7 % (0-2.0); EOS % 2.1 % (0-4.5); HEMATOCRIT 32.4 % (32.4-45.2); HEMOGLOBIN 10.8 GM/dL (10.7-15.3); LYMPH % 22.2 % (8-40); MCH 28.9 pg (25.7-33.7); MCHC 33.2 g/dl (32.0-36.0); MEAN PLT VOLUME 9.8 fl (7.5-11.1); MONO % 4.5 % (3.8-10.2); NEUT % 70.5 % (42.8-82.8); PLATELET COUNT 186 10^3/uL (134-434); RBC 3.73 M/mm3 (3.60-5.2); RDW 14.6 % (11.6-15.6); WHITE BLOOD COUNT 9.2 K/mm3 (4.0-10.0)
[2021-02-27] MEDS: ENOXAPARIN NA (PORCINE) 40 MG/0.4 ML DISP.SYRIN SQ SCH (11:09)
[2021-02-27 17:26] VITALS: BP 124/82; PULSE 82; TEMP 98.5
== END 2021-02-27 15:30 | disposition home or self-care (01) | DRG 540 ==
LOC: JLDR 13:40 → J3W 18:00
PROVIDERS: ADMIT Obstetrics & Gynecology; ATTEND Obstetrics & Gynecology
PROC: 10D00Z1 Extraction of Products of Conception, Low, Open Approach (ICD-10-PCS; principal; 2021-02-24)
DX: O34.211 Maternal care for low transverse scar from previous cesarean delivery (principal); O48.0 Post-term pregnancy; Z3A.40 40 weeks gestation of pregnancy; O99.214 Obesity complicating childbirth; E66.01 Morbid (severe) obesity due to excess calories; O24.415 Gestational diabetes mellitus in pregnancy, controlled by oral hypoglycemic drugs; Z37.0 Single live birth
CPT/HCPCS: 36415; 36600; 82803; 82962; 84439; 84443; 85025; 88307-TC; 94010

== ENCOUNTER 2021-06-12 16:55 | Emergency (ER) | payer OTHER ==
[2021-06-12 17:14] VITALS: BP 132/85; PULSE 74; TEMP 97.9; BMI 49.9
[2021-06-12] MEDS ORDERED: KETOROLAC TROMETHAMINE 30 MG/1 ML VIAL IM ONE (17:28)
[2021-06-12] MEDS ORDERED: KETOROLAC TROMETHAMINE 30 MG/1 ML VIAL ONE (17:30)
== END 2021-06-12 17:45 | disposition home or self-care (01) ==
LOC: JERFT 16:55
PROC: 3E0233Z Introduction of Anti-inflammatory into Muscle, Percutaneous Approach (ICD-10-PCS; principal; 2021-06-12)
DX: M54.05 Panniculitis affecting regions of neck and back, thoracolumbar region (principal)
CPT/HCPCS: 99284-25

== ENCOUNTER 2021-08-11 18:23 | Emergency (ER) | payer OTHER ==
[2021-08-11 18:47] VITALS: BP 120/80; PULSE 74; TEMP 98.2; BMI 44.6
[2021-08-11 22:05] LABS: BASO % 1.1 % (0-2.0); EOS % 0.9 % (0-4.5); HEMATOCRIT 37.8 % (32.4-45.2); HEMOGLOBIN 12.3 GM/dL (10.7-15.3); LYMPH % 30.1 % (8-40); MCH 29.7 pg (25.7-33.7); MCHC 32.5 g/dl (32.0-36.0); MEAN CELL VOLUME 91.2 fl (80-96); MEAN PLT VOLUME 9.3 fl (7.5-11.1); MONO % 3.1 % (3.8-10.2); NEUT % 64.8 % (42.8-82.8); PLATELET COUNT 222 10^3/uL (134-434); RBC 4.14 M/mm3 (3.60-5.2); RDW 18.8 % (11.6-15.6); WHITE BLOOD COUNT 8.7 K/mm3 (4.0-10.0)
== END 2021-08-12 00:26 | disposition home or self-care (01) ==
LOC: JER 18:23
DX: O03.9 Complete or unspecified spontaneous abortion without complication (principal)
CPT/HCPCS: 36415; 76817-TC; 84702; 85025; 86850; 86900; 86901; 99284-25

== ENCOUNTER 2022-02-23 17:37 | Emergency (ER) | payer OTHER ==
[2022-02-23 18:13] VITALS: BP 103/69; PULSE 82; RESP 18; TEMP 98.1; BMI 51.1
[2022-02-23] MEDS ORDERED: ACETAMINOPHEN 500 MG TABLET (FP) PO ONE (19:35)
[2022-02-23] MEDS ORDERED: ACETAMINOPHEN 500 MG TABLET (FP) ONE (19:39)
== END 2022-02-23 22:26 | disposition home or self-care (01) ==
LOC: JER 17:37 → JERFT 17:37
DX: G44.319 Acute post-traumatic headache, not intractable (principal); M54.2 Cervicalgia; M54.50 Low back pain, unspecified
CPT/HCPCS: 70450-TC; 72125-TC; 72128-TC; 72131-TC; 84703; 99284-25

== ENCOUNTER 2023-05-18 18:37 | Emergency (ER) | payer OTHER ==
[2023-05-18 19:24] VITALS: BP 134/77; PULSE 94; RESP 18; TEMP 98.3; BMI 48.9
[2023-05-18] MEDS ORDERED: CYCLOBENZAPRINE HCL 10 MG TABLET (FP) ONE (21:40)
[2023-05-18] MEDS ORDERED: KETOROLAC TROMETHAMINE 30 MG/1 ML VIAL ONE (21:40)
[2023-05-18] MEDS ORDERED: ACETAMINOPHEN 500 MG TABLET (FP) ONE (21:40)
[2023-05-18] MEDS ORDERED: LIDOCAINE 4% PATCH TP ONE (21:40)
[2023-05-18] MEDS: LIDOCAINE 4% PATCH TP ONE (21:45)
[2023-05-18] MEDS: CYCLOBENZAPRINE HCL 10 MG TABLET (FP) PO ONE (21:45)
[2023-05-18] MEDS: ACETAMINOPHEN 500 MG TABLET (FP) PO ONE (21:46)
[2023-05-18] MEDS: KETOROLAC TROMETHAMINE 30 MG/1 ML VIAL IM ONE (21:46)
[2023-05-18] MEDS ORDERED: LIDOCAINE PATCH REMOVAL MC SCH (22:00)
== END 2023-05-18 23:22 | disposition home or self-care (01) ==
LOC: JER 18:37 → JERFT 18:37
PROC: 3E0233Z Introduction of Anti-inflammatory into Muscle, Percutaneous Approach (ICD-10-PCS; principal; 2023-05-18)
DX: M54.50 Low back pain, unspecified (principal); S30.0XXA Contusion of lower back and pelvis, initial encounter; S40.022A Contusion of left upper arm, initial encounter; W10.9XXA Fall (on) (from) unspecified stairs and steps, initial encounter
CPT/HCPCS: 72100-TC-FY; 73562-TC-RT-FY; 96372; 99284-25

== ENCOUNTER 2024-03-29 00:14 | Emergency (ER) | payer SELFPAY ==
[2024-03-29 00:19] VITALS: BP 125/72; PULSE 89; RESP 18; TEMP 98; BMI 51.5
[2024-03-29] MEDS ORDERED: ACETAMINOPHEN 500 MG TABLET (FP) ONE (01:44)
[2024-03-29] MEDS: ACETAMINOPHEN 500 MG TABLET (FP) PO ONE (01:45)
[2024-03-29 02:05] LABS: BASO % 0.4 % (0-2.0); EOS % 1.5 % (0-4.5); EPI CELLS >36 /uL (0-25.1); HEMATOCRIT 38.8 % (32.4-45.2); HEMOGLOBIN 12.2 GM/dL (10.7-15.3); HYALINE CASTS 0 /uL (0-3.1); LYMPH % 26.3 % (8-40); MCH 28.9 pg (25.7-33.7); MCHC 31.5 g/dl (32.0-36.0); MEAN CELL VOLUME 91.7 fl (80-96); MONO % 3.7 % (3.8-10.2); NEUT % 68.1 % (42.8-82.8); PLATELET COUNT 223 10^3/uL (134-434); RBC 4.24 M/mm3 (3.60-5.2); RDW 13.3 % (11.6-15.6); URINE APPEARANCE CLOUDY; URINE BACTERIA 752 /uL (0-1359); URINE BILIRUBIN NEGATIVE (NEGATIVE); URINE COLOR YELLOW; URINE GLUCOSE (UA) NEGATIVE (NEGATIVE); URINE KETONE TRACE (NEGATIVE); URINE LEUK ESTERASE TRACE (NEGATIVE); URINE NITRITE NEGATIVE (NEGATIVE); URINE PROTEIN 1+ (NEGATIVE); URINE RBC 36 /uL (0-23.9); URINE UROBILINOGEN 0.2 mg/dL (0.2-1.0); URINE WBC 65 /uL (0-25.8); WHITE BLOOD COUNT 7.7 K/mm3 (4.0-10.0)
[2024-03-29 02:26] LABS: POTASSIUM 3.8 mmol/L (3.5-5.1)
[2024-03-29 02:28] LABS: ALBUMIN 3.8 g/dl (3.4-5.0); CALCIUM 8.9 mg/dL (8.5-10.1)
[2024-03-29 02:32] LABS: CREATININE 0.8 mg/dL (0.55-1.3)
[2024-03-29 02:33] LABS: BILIRUBIN,TOTAL 0.2 mg/dL (0.2-1); TOT PROT 7.2 g/dl (6.4-8.2)
[2024-03-29 03:21] LABS: HIV INTERPRETATION NEGATIVE (NEGATIVE)
== END 2024-03-29 03:27 | disposition home or self-care (01) ==
LOC: JER 00:14
DX: N93.9 Abnormal uterine and vaginal bleeding, unspecified (principal); R10.30 Lower abdominal pain, unspecified
CPT/HCPCS: 36415; 80053; 81003; 84439; 84443; 84702; 84703; 85025; 86803; 86850; 86900; 86901; 87086; 87389; 99283-25

== ENCOUNTER 2024-10-19 18:08 | Observation (INO) | payer OTHER ==
[2024-10-19 19:13] LABS: ABSOLUTE IMMATURE GRANULOCYTES 0.06 x10^3/uL (0.0-0.031); BASOPHILS # 0.04 x10^3/uL (0.01-0.08); EOSINOPHIL % 1.3 % (0.7-5.8); EOSINOPHILS # 0.10 x10^3/uL (0.04-0.36); MCHC 26.4 g/dl (32.2-35.5); MEAN CELL VOLUME 80.0 fl (79.4-94.8); MEAN PLT VOLUME 11.3 fl (9.4-12.3); MONOCYTE # 0.38 x10^3/uL (0.24-0.86); MONOCYTE % 4.8 % (4.7-12.5); RDW 18.8 % (12.1-16.8)
[2024-10-19 20:23] LABS: EPI CELLS 3 /uL (0-25.1); HYALINE CASTS 0 /uL (0-3.1); URINE APPEARANCE CLEAR; URINE BACTERIA 190 /uL (0-1359); URINE BILIRUBIN NEGATIVE (NEGATIVE); URINE COLOR YELLOW; URINE GLUCOSE (UA) NEGATIVE (NEGATIVE); URINE KETONE NEGATIVE (NEGATIVE); URINE LEUK ESTERASE NEGATIVE (NEGATIVE); URINE NITRITE NEGATIVE (NEGATIVE); URINE PROTEIN NEGATIVE (NEGATIVE); URINE RBC 3 /uL (0-23.9); URINE UROBILINOGEN 0.2 mg/dL (0.2-1.0); URINE WBC 6 /uL (0-25.8)
[2024-10-19 20:48] LABS: CO2 25.0 mmol/L (21-32); GLUCOSE,RANDOM 134.0 mg/dL (74-106)
[2024-10-19 20:51] LABS: CREATININE 1.1 mg/dL (0.55-1.3); SGOT/AST 88.0 U/L (15-37); SGPT/ALT 64.0 U/L (13-61)
[2024-10-19 20:53] LABS: TOT PROT 7.5 g/dl (6.4-8.2)
[2024-10-19 20:55] LABS: ALK PHOS 96.0 U/L (45-117)
[2024-10-19] MEDS ORDERED: KETOROLAC TROMETHAMINE 15 MG/ML VIAL ONE (20:55)
[2024-10-19 20:56] LABS: N-TERMINAL BNP 143.0 pg/ml (5-125)
[2024-10-19] MEDS: KETOROLAC TROMETHAMINE 15 MG/ML VIAL IVPUSH ONE (21:03)
[2024-10-19 22:23] LABS: HIV INTERPRETATION NEGATIVE (NEGATIVE)
[2024-10-19 22:26] LABS: HCV DIAGNOSTIC IN-HOUSE W/RFLX NON-REACTIVE (NONREACTIVE)
[2024-10-20] MEDS ORDERED: LEVOTHYROXINE NA 100 MCG TABLET (FP) ONE
[2024-10-20] MEDS: LEVOTHYROXINE NA 100 MCG TABLET (FP) PO ONE (00:03)
[2024-10-20] MEDS: LEVOTHYROXINE NA 125 MCG TABLET (FP) PO SCH (07:48)
[2024-10-20 08:05] VITALS: BMI 48.5
[2024-10-20 10:00] LABS: INR 1.05 (0.83-1.09); PROTHROMBIN TIME (PATIENT) 11.4 SEC (9.7-13.0)
[2024-10-20] MEDS ORDERED: LEVOTHYROXINE NA 50 MCG TABLET (FP) PO SCH (10:00)
[2024-10-20 10:02] LABS: ACTIVATED PTT 30.1 SECONDS (25.2-36.5)
[2024-10-20 10:07] LABS: IRON SERUM 34.0 ug/dL (50-175)
[2024-10-20] MEDS: ACETAMINOPHEN 325 MG TABLET (FP) PO PRN (10:32)
[2024-10-20 10:53] LABS: MCHC 27.8 g/dl (32.2-35.5); MEAN CELL VOLUME 79.9 fl (79.4-94.8); MEAN PLT VOLUME 10.5 fl (9.4-12.3); RDW 17.9 % (12.1-16.8)
[2024-10-20 11:16] LABS: CO2 26.0 mmol/L (21-32); GLUCOSE,RANDOM 142.0 mg/dL (74-106)
[2024-10-20 11:19] LABS: CREATININE 1.1 mg/dL (0.55-1.3); SGOT/AST 81.0 U/L (15-37); SGPT/ALT 57.0 U/L (13-61)
[2024-10-20 11:21] LABS: TOT PROT 7.2 g/dl (6.4-8.2)
[2024-10-20 11:22] LABS: ALK PHOS 91.0 U/L (45-117)
[2024-10-20] MEDS: MULTIVITAMINS (DAILY MVI) TABLET (FP) PO SCH (14:25)
[2024-10-20] MEDS: ASCORBIC ACID 500 MG TABLET (FP) PO SCH (14:25)
[2024-10-20] MEDS: IRON SUCROSE INJECTION 200 MG in SODIUM CHLORIDE 100 ML IVPB ONE (20:32)
[2024-10-20] MEDS: LIDOCAINE 5% TOPICAL PATCH TP SCH (22:16)
[2024-10-21 08:41] LABS: MCHC 27.2 g/dl (32.2-35.5); MEAN CELL VOLUME 80.5 fl (79.4-94.8); MEAN PLT VOLUME 11.3 fl (9.4-12.3); RDW 18.2 % (12.1-16.8)
[2024-10-21 09:39] LABS: CO2 26.0 mmol/L (21-32); GLUCOSE,RANDOM 161.0 mg/dL (74-106)
[2024-10-21 09:41] LABS: SGPT/ALT 53.0 U/L (13-61)
[2024-10-21] MEDS: LIDOCAINE PATCH REMOVAL MC SCH (09:41)
[2024-10-21 09:42] LABS: CREATININE 0.9 mg/dL (0.55-1.3); SGOT/AST 73.0 U/L (15-37)
[2024-10-21 09:43] LABS: TOT PROT 6.9 g/dl (6.4-8.2)
[2024-10-21 09:44] LABS: ALK PHOS 80.0 U/L (45-117)
[2024-10-21 17:44] LABS: ABSOLUTE IMMATURE GRANULOCYTES 0.10 x10^3/uL (0.0-0.031); BASOPHILS # 0.05 x10^3/uL (0.01-0.08); EOSINOPHIL % 1.6 % (0.7-5.8); EOSINOPHILS # 0.13 x10^3/uL (0.04-0.36); MCHC 28.3 g/dl (32.2-35.5); MEAN CELL VOLUME 82.5 fl (79.4-94.8); MEAN PLT VOLUME 11.1 fl (9.4-12.3); MONOCYTE # 0.40 x10^3/uL (0.24-0.86); MONOCYTE % 4.8 % (4.7-12.5); RDW 18.0 % (12.1-16.8)
[2024-10-21 18:28] VITALS: BP 106/59; PULSE 74; RESP 18; TEMP 98.1
== END 2024-10-21 19:29 | disposition home or self-care (01) ==
LOC: JER 18:08 → JERBED 21:14 → INTOOBSV 21:14 → UNDOADMOB 21:14 → JERBED 10-20 06:58 → J5S 10-20 06:58 → JERBED 10-20 10:51 → J5S 10-20 10:51
PROVIDERS: ADMIT Internal Medicine; ATTEND Nurse Practitioner Family
PROC: 30233N1 Transfusion of Nonautologous Red Blood Cells into Peripheral Vein, Percutaneous Approach (ICD-10-PCS; principal; 2024-10-20)
PROC: 3E033GC Introduction of Other Therapeutic Substance into Peripheral Vein, Percutaneous Approach (ICD-10-PCS; 2024-10-20)
PROC: 3E0333Z Introduction of Anti-inflammatory into Peripheral Vein, Percutaneous Approach (ICD-10-PCS; 2024-10-20)
DX: D64.9 Anemia, unspecified (principal); N92.6 Irregular menstruation, unspecified; E03.9 Hypothyroidism, unspecified; E66.01 Morbid (severe) obesity due to excess calories; R94.5 Abnormal results of liver function studies; Z91.010 Allergy to peanuts; Z91.018 Allergy to other foods; Z86.32 Personal history of gestational diabetes
CPT/HCPCS: 36415; 36430; 73610-TC-RT-FY; 73630-TC-RT-FY; 80053; 81003; 82728; 83010; 83036; 83540; 83550; 83735; 83880; 84100; 84439; 84443; 84703; 85025; 85027; 85379; 85610; 85730; 86803; 86850; 86900; 86901; 86922; 87389; 93970-TC; 99285-25; G0378; J1756; P9038; P9058